=== PATIENT | male | born 1960 | race Caucasian/White ===

== ENCOUNTER 2016-08-09 18:46 | Inpatient (IN) | payer BC, OTHER ==
[~2016-08-09] VITALS: Ht 167.6 cm; Wt 83.3 kg
[~2016-08-09 18:46] MED LIST: ASPI325T4 PO; ATOR40TA21 PO; BENA1TAB13; CARV6.2545 PO; LAS20 PO; NAPR-260 PO; ONDA4TAB35 PO; PANT40TA3; POTA10TA
[2016-08-09] MEDS ORDERED: SOD CHLORIDE 0.9% 500 ML IV STA (23:08)
[2016-08-09 23:59] LABS: ALBUMIN 4.6 g/dl (3.3-4.9); POTASSIUM 3.7 mmol/L (3.5-5.1)
[2016-08-10] VITALS (11 sets, daily range): BP systolic 124–166; BP diastolic 48–58; PULSE 56–63; RESP 18–19; Ht 167.6 cm; Wt 83.3 kg
[2016-08-10] LABS: INR 0.97; PROTIME 12.9 Sec (12.2-14.2)
[2016-08-10 00:01] LABS: PARTIAL THROMBOPLASTIN TIME 47.7 Sec (25.0-35.0)
[2016-08-10 00:02] LABS: ALBUMIN/GLOBULIN RATIO 1.27; BILIRUBIN,INDIRECT 0.3 mg/dl (0-1.1); BILIRUBIN,TOTAL 0.3 mg/dl (0.2-1.3); CREATININE 1.09 mg/dl (0.61-1.24); TOTAL PROTEIN 8.2 g/dl (6.1-8.1)
[2016-08-10 00:03] LABS: CALCIUM 9.5 mg/dl (8.4-10.2)
[2016-08-10 00:13] LABS: BASOPHILS % 0.3 % (0.0-2.0); EOSINOPHILS # 0.1 10^3/ul (0.0-0.5); HEMATOCRIT 38.4 % (42.0-52.0); HEMOGLOBIN 13.1 g/dl (14.0-18.0); LYMPHOCYTES # 1.8 10^3/ul (0.8-2.9); LYMPHOCYTES % 39.6 % (15.0-51.0); MEAN CORPUSCULAR HGB CONC 34.2 g/dl (32.0-37.0); MEAN CORPUSCULAR VOLUME 90.6 fl (82.0-101.0); MEAN PLATELET VOLUME 8.1 fl (7.4-10.4); MONOCYTE # 0.4 10^3/ul (0.3-0.9); MONOCYTES % 8.7 % (0.0-11.0); NEUTROPHIL # 2.2 10^3/ul (1.6-7.5); NEUTROPHILS % 48.4 % (39.0-77.0); PLATELET COUNT 243 10^3/UL (140-440); RED BLOOD COUNT 4.24 10^6/ul (4.70-6.10); RED CELL DISTRIBUTION WIDTH 13.1 % (11.5-14.5); UNCORRECTED WBC 4.5 10^3/ul (4.8-10.8); WHITE BLOOD COUNT 4.5 10^3/ul (4.8-10.8)
[2016-08-10 00:14] LABS: CONDITION 1; TROPONIN-I 0.069 ng/ml (0.00-0.12)
--- NOTE | 2016-08-10 01:59 | ERA ---
ER Documentation Chief Complaint Date/Time DATE: 08/10/16 TIME: 01:56 Chief Complaint SOB WITH CHEST PRESSURE X 1 DAY HPI This is a 56-year-old who comes in with a shortness breath chest pressure 1 day. Chest pain is mild to moderate intensity pressure-like substernal nonexertional, non-positional with no exacerbating or alleviating factors. Patient also has noticed some mild leg swelling bilaterally over the past 2 days. No pain in her legs. No recent travel. No nausea no vomiting no fevers no chills ROS All systems reviewed and are negative except as per history of present illness. Medications Home Meds Active Scripts Ondansetron Hcl* (Zofran* ODT) 4 mg -ODT Tab.disper, 4 MG PO Q6 Y for NAUSEA AND /OR VOMITING, #10 TAB Prov:MYRNA GRAY MD 01/23/15 Naproxen* (Naprosyn*) 500 Mg Tablet, 500 MG PO BID Y for PAIN AND/OR INFLAMMATION, #20 TAB Prov:NONA CONTRERAS 01/23/15 Reported Medications Potassium Bicarbonate-Citric Acid (Effer-K) 10 Meq Tablet.eff, 10 DAILY 02/08/13 Benazepril-Hydrochlorothiazide (Benazepril-Hydrochlorothiazide) 1 Each Tablet, 20 MG DAILY, 0 Refills 02/08/13 Pantoprazole* (Protonix*) 40 Mg Tablet.dr, DAILY 02/08/13 Carvedilol (Coreg) 6.25 Mg Tablet, 12.5 MG PO BID, 0 Refills 04/13/12 Furosemide (Lasix) 20 Mg Tab, 40 MG PO DAILY, 0 Refills 04/13/12 Atorvastatin (Lipitor) 40 Mg Tablet, 40 MG PO PM 03/06/12 Aspirin* (Aspirin*) 325 Mg Tablet, 325 MG PO DAILY 03/06/12 Allergies Allergies: Coded Allergies: [place] (Verified Allergy, Intermediate, hives, 04/13/12) Uncoded Allergies: oak wood (Allergy, Intermediate, hives, 03/06/12) PMhx/Soc History of Surgery: No Anesthesia Reaction: No Hx Neurological Disorder: No Hx Respiratory Disorders: No Hx Cardiac Disorders: Yes (chf htn CAD, cardiac stent placement) Hx Psychiatric Problems: No Hx Miscellaneous Medical Probl: Yes (htn/MT/stents) Hx Alcohol Use: No Hx Substance Use: No Hx Tobacco Use: No Smoking Status: Never smoker Physical Exam Vitals Vital Signs Date Time Temp Pulse Resp B/P Pulse Ox O2 Delivery O2 Flow Rate FiO2 08/09/16 23:45 Nasal Cannula 2.0 08/09/16 23:45 Nasal Cannula 2 08/09/16 19:47 97.0 73 20 159/70 96 Physical Exam Const: [] Head: Atraumatic Eyes: Normal Conjunctiva ENT: Normal External Ears, Nose and Mouth. Neck: Full range of motion..~ No meningismus. Resp: Clear to auscultation bilaterally Cardio: Regular rate and rhythm, no murmurs Abd: Soft, non tender, non distended. Normal bowel sounds Skin: No petechiae or rashes Back: No midline or flank tenderness Ext: No cyanosis, or edema Neur: Awake and alert Psych: Normal Mood and Affect Result Diagram: 08/09/160 08/09/16 2330 Results 24 hrs Laboratory Tests Test 08/09/16 23:30 Activated Partial Thromboplast Time 47.7Sec Alanine Aminotransferase (ALT/SGPT) 25IU/L Albumin 4.6g/dl Albumin/Globulin Ratio 1.27 Alkaline Phosphatase 53IU/L Anion Gap 21 Aspartate Amino Transf (AST/SGOT) 26IU/L B-Type Natriuretic Peptide 618PG/ML Basophils # 0.010^3/ul Basophils % 0.3% Blood Urea Nitrogen 35mg/dl Calcium Level 9.5mg/dl Carbon Dioxide Level 27mmol/L Chloride Level 103mmol/L Creatinine 1.09mg/dl Direct Bilirubin 0.00mg/dl Eosinophils # 0.110^3/ul Eosinophils % 3.0% Globulin 3.60g/dl Glucose Level 138mg/dl Hematocrit 38.4% Hemoglobin 13.1g/dl INR International Normalized Ratio 0.97 Indirect Bilirubin 0.3mg/dl Lymphocytes # 1.810^3/ul Lymphocytes % 39.6% Mean Corpuscular Hemoglobin 31.0pg Mean Corpuscular Hemoglobin Concent 34.2g/dl Mean Corpuscular Volume 90.6fl Mean Platelet Volume 8.1fl Monocytes # 0.410^3/ul Monocytes % 8.7% Neutrophils # 2.210^3/ul Neutrophils % 48.4% Nucleated Red Blood Cells # 0.010^3/ul Nucleated Red Blood Cells % 0.0/100WBC Platelet Count 43183^3/UL Potassium Level 3.7mmol/L Prothrombin Time 12.9Sec Prothrombin Time Ratio 1.0 Red Blood Count 4.2410^6/ul Red Cell Distribution Width 13.1% Sodium Level 147mmol/L Total Bilirubin 0.3mg/dl Total Protein 8.2g/dl Troponin I 0.069ng/ml White Blood Count 4.510^3/ul Current Medications Medications (Trade) Dose Ordered Sig/Francisco Route PRN Reason Start Time Stop Time Status Last Admin Dose Admin Sodium Chloride (NS) 500 ml @ 500 mls/hr Q1H STAT IV 08/09/16 23:08 08/10/16 00:07 DC 08/09/16 23:36 Procedures/MDM Chest X-ray 1V Interpreted by me: Soft Tissue: No acute abnormalities Bones: No acute abnormalities Mediastinum/Cardiac Silhouette/Lungs: No acute abnormalities EKG: Rate/Rhythm: Normal Sinus Rhythm QRS, ST, T-waves: No changes consistent w/ acute ischemia Impression: No evidence of ischemia or arrhythmia Patient's symptoms are concerning for cardiac cause will require inpatient workup and continuous monitoring. Further w/u for ischemia, arrhythmia, PE or dissection will be deferred to the inpatient team. Accepting Care Team: Current data and ongoing care discussed. Time: 155 am Primary Provider: Dr. Morales who is on-call for Dr. Ravi Consulting: [XOXOXO] Outstanding Data: none Departure Diagnosis: Primary Impression: Shortness of breath Additional Impression: Chest pain Qualified Code: I20.9 - Ischemic chest pain Condition: Stable RUBI PRADHAN Aug 10, 2016 01:59
[2016-08-10] MEDS ORDERED: ONDANSETRON (ODT) 4 MG TAB ODT ONE (02:43)
--- NOTE | 2016-08-10 04:23 | RADRPT ---
PROCEDURE: XR Chest. CLINICAL INDICATION: Chest Pain. TECHNIQUE: Portable single view of the chest COMPARISON: 01/23/2015 FINDINGS: Global cardiomegaly is again seen as well as mild pulmonary vascular congestion. No definite inters titial or alveolar edema. No focal infiltrate or pleural effusion. No definite acute bony abnormal ity. IMPRESSION: Persistent cardiomegaly and mild pulmonary vascular congestion. RPTAT: HLBE Mariela Coombs Physician Date Time Electronically viewed and signed by Mariela Coombs, Physician on 08/10/2016 04:22 LE/
[2016-08-10] MEDS ORDERED: NITROGLYCERIN (SL) 0.4 MG TAB SL PRN (10:30)
[2016-08-10] MEDS ORDERED: ACETAMINOPHEN 650 MG SUPP PR PRN (10:30)
[2016-08-10] MEDS ORDERED: morphine 2 MG INJ IV PRN (10:30)
[2016-08-10] MEDS ORDERED: ONDANSETRON 4 MG INJ IV PRN (10:30)
[2016-08-10] MEDS ORDERED: NACL 0.9% 3 ML SYG IV SCH (10:30)
[2016-08-10] MEDS ORDERED: ALBUTEROL/IPRATROPIUM (NEB) 3 ML AMP HHN PRN (11:30)
[2016-08-10 12:04] LABS: CK-MB 1.14 ng/ml (0.0-2.4)
--- NOTE | 2016-08-10 12:05 | HP ---
DATE OF ADMISSION: 08/10/2016 CHIEF COMPLAINT: Shortness of breath and chest pressure for 1 more day. HISTORY OF PRESENT ILLNESS: The patient is a 56-year-old gentleman with past medical history posit alex for coronary artery disease status post stent placement to RCA in February [address] Alisa mcelroy, history of hypertension, hyperlipidemia, congestive heart failure, history of chronic obstr uctive pulmonary disease and emphysema. Patient stated that he has been compliant with his medications. The patient developed shortness of breath and pressure-like sensation in the chest. The patient also stated that he was not able to li ft and walk one flight of stairs. Chest pressure is moderate in intensity, substernal, nonexertiona l. The patient also complains of bilateral lower extremity swelling over the last 2 days. The buffy ent denies any fever, denies any nausea, vomiting, diarrhea, constipation. Patient also stated that he had a stress test recently done in January of [address] Tompkins's office, he does not know the re sults of the test. Patient underwent a chest x-ray in the emergency room which revealed persistent cardiomegaly and mild pulmonary vascular congestion. The patient also has a history of pulmonary h ypertension. The patient's troponin was negative x1. BNP was 618. The patient was given oxygen an d was admitted for further evaluation and management to telemetry floor. REVIEW OF SYSTEMS: Per HPI. The patient also stated that he has chronic back pain and GERD. PAST SURGICAL HISTORY: Per HPI. SOCIAL HISTORY: The patient lives at home. The patient quit smoking in 2010. Denies any alcohol u se, denies any illicit drug use. FAMILY HISTORY: Patient's mother of diabetic complications in his 60s. Father of heart p roblems at 72. ALLERGIES: The patient is ALLERGIC TO OLIVES AND OAK WOOD. HOME MEDICATIONS: Include: 1. Aspirin. 2. Naproxen. 3. Zofran. 4. Protonix. 5. Lipitor. 6. Benazepril/hydrochlorothiazide. 7. Coreg. 8. Lasix. LABORATORY SYSTEMS: A 12-point review of systems is negative unless what mentioned in the HPI. PHYSICAL ASSESSMENT GENERAL: well-developed, well-nourished male, currently is awake, alert. VITAL SIGNS: Temperature is 97.6, pulse is 64, blood pressure is 134/48, respiratory rate 18, oxyge n saturation 97% on 2 liters nasal cannula. HEENT: Head is atraumatic, normocephalic. Pupils equal, round, reactive to light and accommodation . Oral mucosa is pink and moist. NECK: Supple, no cervical lymphadenopathy, no thyromegaly. CHEST: Lungs clear bilaterally, slightly diminished at the bases. There are no rhonchi, wheezes or rales noted. CARDIOVASCULAR: Normal S1, S2. The patient has diastolic murmur III/. ABDOMEN: Round, soft, nondistended, nontender. There is no guarding, no rebound tenderness. EXTREMITIES: Mild edema 1+. There is no clubbing, cyanosis. Pulses equal bilaterally 2+. SKIN: There is no rash, petechiae noted. NEUROLOGICAL: The patient is awake, alert and oriented x4. No focal deficits noted. MUSCULOSKELETAL: Motor strength 5/5 in all extremities. LABORATORY DATA: On admission, CBC: White blood cells 4.5, hemoglobin 13.1, hematocrit 38.4, plate lets 243. Chemistry: Sodium is 147, potassium 3.7, chloride 103, carbon dioxide 27, anion gap 21, BUN is 35, creatinine 1.09. AST is 26, ALT 25, alkaline phosphatase 53. ASSESSMENT AND PLAN: 1. Chest pain, rule out acute coronary syndrome. We will obtain cardiac enzymes q. 8 hours x3, o btain a 2D echo and 12-lead EKG. Start patient on aspirin and nitroglycerin for pain. Dr. Martinez will be following the patient from cardiology standpoint. 2. Systolic and diastolic dysfunction congestive heart failure. Continue patient's home Lasix. Mo nitor electrolytes. 3. Hypertension. Continue patient on Coreg, lisinopril and hydrochlorothiazide. 4. Coronary artery disease with history of stent placement to RCA in 2011. Continue aspirin. 5. Chronic obstructive pulmonary disease. We will start patient on Xopenex p.r.n. for shortness of breath and routine q. 4h. Start Advair. 6. Hyperlipidemia. Continue statins. 7. We will continue Lovenox for deep venous thrombosis prophylaxis and Protonix for peptic ulcer di sease prophylaxis. Further recommendations based on clinical course. Plan of care discussed with Tana Mota. Dictated By: DARION PRASAD BATTERY CONTAINER FINISHING HAND for AMAN MOTA MD SR/NTS Conf#: [id number] DID#: [id number]
[2016-08-10 12:06] LABS: TROPONIN-I 0.043 ng/ml (0.00-0.12)
[2016-08-10] MEDS: ENOXAPARIN 30 MG/0.3 ML SYG SC SCH (12:32)
[2016-08-10] MEDS: ALBUTEROL/IPRATROPIUM (NEB) 3 ML AMP HHN SCH ×2 (13:48→20:13)
[2016-08-10] MEDS: SALMETEROL/FLUTICASONE 250/50 INHA INH SCH ×2 (13:51→22:21)
--- NOTE | 2016-08-10 16:05 | RADRPT ---
Echocardiogram Report Patient Name: AUDREY VILLAFUERTE Gender: Male Date: 1960 Study Date: 10-Aug-2016 Early Breastfeeding Care Specialist: Bela Davis RDCS Location: [facility] Ref. Physician: DARION PRASAD Quality: Good Procedures: Transthoracic echocardiogram with complete 2D, M-Mode, and doppler examination. Indications: Congestive Heart Failure. 2D/M Mode Doppler Measurement Value Normal Ranges Measurement Value Normal Ranges LVIDd 2D 7.4 3.5 - 5.6 cm SOM Vmax 3.3 cm2 LVIDs 2D 5.8 2.1 - 4.1 cm SOM VTI 3.7 cm2 FS 2D 21.1 % AV Mean Yuri 1.4 m/sec LVPWd 2D 1.3 0.6 - 1.1 cm AV Mean PG 9.0 mmHg IVSd 2D 1.4 0.6 - 1.1 cm AV Peak Yuri 2.2 m/sec IVS/LVPW 2D 1.0 AV Peak PG 20.0 mmHg AoR Diam 2D 3.7 2.0 - 3.7 cm AV VTI 49.3 cm LA/Ao 2D 1 0 - 1 AI Peak PG 40.0 mmHg EDV 2D 407.0 cm3 AI Peak Yuri 3.2 m/sec ESV 2D 200.0 cm3 AI PHT 372.0 msec LA Dimen 2D 5.4 2.3 - 4.0 cm LVOT Mean Yuri 0.8 m/sec LVOT Diam 2.8 cm LVOT Mean PG 3.0 mmHg LVOT Area 6.2 cm2 LVOT Peak Yuri 1.2 m/sec LVOT Peak PG 6.0 mmHg LVOT VTI 29.9 cm MV E Peak Yuri 0.7 m/sec MV A Peak Yuri 0.8 m/sec MV E/A 0.9 MV Decel Time 222 msec MV E/A 0.9 TR Peak Yuri 2.8 m/sec TR Peak PG 32.0 mmHg RVSP 47.0 mmHg Findings Left Ventricle: Moderate concentric left ventricular hypertrophy. Severe enlargement of left ventricle cavity. Moderate global left ventricular systolic dysfunction. Ejection fraction is visually estimated at 40 %. Tissue Doppler/Mitral Doppler indices are consistent with impaired relaxation (Stage I diastolic dysfunction). Right Ventricle: Normal right ventricular size. Normal right ventricular systolic function. Left Atrium: There is severe enlargement of left atrium. Right Atrium: The right atrium is normal in size. Mitral Valve: Normal appearance of the mitral valve. Mild mitral annular calcification. Trace mitral regurgitation. Aortic Valve: Aortic valve Max velocity 2.21 m/sec. Max PG 20.00 mmHg. Mean PG 9.00 mmHg. Aortic sclerosis without stenosis. Aortic cusps appear mildly calcified. Moderate aortic valve regurgitation. The regurgitation jet is eccentrically directed. Tricuspid Valve: Estimated peak PA systolic pressure 47 mmHg. There is mild tricuspid regurgitation. Pulmonic Valve: Normal pulmonic valve appearance. There is mild pulmonic regurgitation. Pericardium: Normal pericardium with no significant pericardial effusion. Aorta: Normal aortic root. IVC: Dilated IVC without respiratory collapse consistent with elevated right atrial pressure. Conclusions 1.Moderate concentric left ventricular hypertrophy. Severe enlargement of left ventricle cavity. Mild to Moderate global left ventricular systolic dysfunction. Ejection fraction is visually estimated at 40 %. Tissue Doppler/Mitral Doppler indices are consistent with impaired relaxation (Stage I diastolic dysfunction). 2.There is severe enlargement of left atrium. 3.Normal appearance of the mitral valve. Mild mitral annular calcification. Trace mitral regurgitation. 4.Moderate aortic valve regurgitation. 5.Estimated peak PA systolic pressure 47 mmHg. There is mild tricuspid regurgitation. 6.There is mild pulmonic regurgitation. Electronically Signed By: Aaron Martinez 10-Aug-2016 16:04:0800 Patient Name: AUDREY VILLAFUERTE Study Date: 10-Aug-2016 [id number]
--- NOTE | 2016-08-10 16:53 | CONS ---
DATE OF ADMISSION: 08/10/2016 DATE OF CONSULTATION: 08/10/2016 TYPE OF CONSULTATION: Cardiology. REASON FOR CONSULTATION: Shortness of breath, assess for congestive heart failure as well as chest pain, assess for acute coronary syndrome. REQUESTING PHYSICIAN: Aman Blank MD HISTORY OF PRESENT ILLNESS: Mr. Garay is a 56-year-old male with history of percutaneous trans luminal coronary angioplasty and stent placement February 2012, hypertension, chronic obstructive p ulmonary disease, dyslipidemia, congestive heart failure who presented with worsening shortness maria a th and associated chest pressure x1 day, worse with exertional activities. Upon arrival in the emergency department, temperature 97, blood pressure 159/70, pulse 70, respirato ry 20, saturating 96%. Patient's labs white blood cell count of 4.5, hemoglobin 13.1, platelet coun t of 243. Sodium 147, potassium 3.7, creatinine 1.0, BUN of 35. Troponin negative. BNP of 618, T 26, ALT 25. INR 0.97. White blood cell count 4.5, hemoglobin 13.1, platelet count of 243. The patient underwent a chest x-ray revealing persistent cardiomegaly and mild pulmonary vascular co ngestion. The patient's electrocardiogram revealed normal sinus rhythm rate of 68, normal axis, vol tage criteria for left ventricular hypertrophy and nonspecific ST-T abnormalities. The patient was subsequently admitted to the floor and since admit to the floor, continues to have shortness of maria a th and intermittent chest pain. PAST MEDICAL HISTORY: As above in HPI. MEDICATIONS CURRENTLY IN HOSPITAL: 1. Aspirin 81 mg daily. 2. Lasix 40 mg daily. 3. benazepril 20 mg daily. 4. Hydrochlorothiazide 12.5 mg daily. 5. Protonix 40 mg daily. 6. Lipitor 40 mg at bedtime. 7. Carvedilol 12.5 mg p.o. b.i.d. 8. DuoNebs. 9. Advair Diskus, 10. ____ p. r.n. 11. Morphine p.r.n. 12. ____ p.r.n. ALLERGIES: NO KNOWN DRUG ALLERGIES. SOCIAL HISTORY: No tobacco, ETOH or illicit drug use. FAMILY HISTORY: No history of sudden cardiac or early CAD. REVIEW OF SYSTEMS: As above in HPI. CONSTITUTIONAL: No fevers, chills. PULMONARY: Shortness of breath. CARDIOVASCULAR: Obstructive pulmonary disease. GASTROINTESTINAL: No vomiting. GENITOURINARY: No hematuria. MUSCULOSKELETAL: Degenerative joint disease. PSYCHIATRIC: The patient denies depression. NEUROLOGIC: No documented history of CVA. PHYSICAL EXAMINATION VITAL SIGNS: Temperature 97.6, blood pressure 132/58, pulse 61, respirations 18, saturating 95%. GENERAL: The patient is alert, awake, in no acute distress. NECK: JVP approximately 9 cm water. CHEST: Fair air movement throughout. HEART: Regular rate and rhythm. Normal S1, S2, I/ systolic murmur, nondisplaced PMI. ABDOMEN: Positive bowel sounds, soft. EXTREMITIES: No pitting edema, 1+ pulses bilaterally, posterior tibial. LABORATORIES: As above in HPI with since admit patient had a second troponin return negative, 2 neg ative troponins. IMAGING STUDIES: As above in HPI. No further imaging studies for my review at this time. ECG: As above in HPI. No further electrocardiograms for my review at this time. IMPRESSION: 1. Chest pain, assess for acute coronary syndrome. 2. Shortness of breath, assess for congestive heart failure. 3. Abnormal electrocardiogram, assess for acute coronary syndrome. 4. Hypertension, under reasonable control. 5. History of dyslipidemia. 6. History of percutaneous transluminal coronary angioplasty and stent placement in 2011 to the [facility] coronary artery. 7. History of stress test January 2016 in my [facility] office, unknown results at this time. 8. Chronic obstructive pulmonary disease. 9. Hypernatremia. 10. Mild anemia. RECOMMENDATIONS: 1. At this time, would maintain patient on telemetry monitoring to follow rhythm and rate control c losely. 2. I am going to complete the patient's rule out for myocardial infarction to ensure that the patie nt's chest pain was not due to an acute coronary syndrome such as acute myocardial infarction. 3. Check a 2D echocardiogram to further assess the patient's ejection fraction, wall motion or any major abnormalities and I will additionally follow the patient's stress test in the office February 12 and assess for any possible ischemia and need for catheterization during this ____ hospitalizati on. 4. Continue the patient's current carvedilol, benazepril and hydrochlorothiazide for control of blo od pressure. 5. Continue the patient's current Lipitor and adjust according to a fasting lipid panel ____ that she checked. 6. Continue the patient's daily Lasix at this time, following strict I's and O's to grade diuresis closely, with possible need to increase dose and additionally will continue the patient's bronchodil ators and follow respiratory status closely. Thank you for allowing me to take part in the care of this patient. I will continue to follow very closely with you with further recommendations to be made as patient progresses through her inpatient hospital clinical course. Dictated By: MYRNA GILBERT/CECY Conf#: [id number] DID#: [id number] CC: AMAN BLANK MD;*EndCC*
[2016-08-10] MEDS: ATORVASTATIN 40 MG TAB PO SCH (20:58)
[2016-08-10] MEDS: FUROSEMIDE 40 MG TAB PO SCH (20:59)
[2016-08-10 21:05] LABS: CK-MB 0.94 ng/ml (0.0-2.4)
[2016-08-10 21:07] LABS: TROPONIN-I 0.063 ng/ml (0.00-0.12)
[2016-08-11] VITALS (13 sets, daily range): BP systolic 120–147; BP diastolic 25–74; PULSE 52–68; RESP 18–20
[2016-08-11] MEDS: ALBUTEROL/IPRATROPIUM (NEB) 3 ML AMP HHN SCH ×4 (02:31→20:56)
[2016-08-11] MEDS: PANTOPRAZOLE (EC) 40 MG TAB PO SCH (05:34)
[2016-08-11 07:35] LABS: BASOPHILS % 0.4 % (0.0-2.0); EOSINOPHILS # 0.2 10^3/ul (0.0-0.5); EOSINOPHILS % 3.7 % (0.0-7.0); HEMATOCRIT 37.9 % (42.0-52.0); HEMOGLOBIN 12.9 g/dl (14.0-18.0); LYMPHOCYTES # 1.3 10^3/ul (0.8-2.9); LYMPHOCYTES % 28.9 % (15.0-51.0); MEAN CORPUSCULAR HEMOGLOBIN 31.2 pg (29.0-33.0); MEAN CORPUSCULAR HGB CONC 34.2 g/dl (32.0-37.0); MEAN CORPUSCULAR VOLUME 91.2 fl (82.0-101.0); MEAN PLATELET VOLUME 7.9 fl (7.4-10.4); MONOCYTE # 0.3 10^3/ul (0.3-0.9); MONOCYTES % 7.8 % (0.0-11.0); NEUTROPHIL # 2.6 10^3/ul (1.6-7.5); NEUTROPHILS % 59.2 % (39.0-77.0); PLATELET COUNT 211 10^3/UL (140-440); RED BLOOD COUNT 4.15 10^6/ul (4.70-6.10); RED CELL DISTRIBUTION WIDTH 13.3 % (11.5-14.5); UNCORRECTED WBC 4.4 10^3/ul (4.8-10.8); WHITE BLOOD COUNT 4.4 10^3/ul (4.8-10.8)
[2016-08-11 07:39] LABS: CONDITION 1
[2016-08-11 07:44] LABS: ALBUMIN 4.2 g/dl (3.3-4.9)
[2016-08-11 07:45] LABS: POTASSIUM 3.9 mmol/L (3.5-5.1)
[2016-08-11 07:47] LABS: ALBUMIN/GLOBULIN RATIO 1.31; BILIRUBIN,INDIRECT 0.4 mg/dl (0-1.1); BILIRUBIN,TOTAL 0.4 mg/dl (0.2-1.3); CREATININE 0.93 mg/dl (0.61-1.24); TOTAL PROTEIN 7.4 g/dl (6.1-8.1)
[2016-08-11 07:48] LABS: CALCIUM 8.9 mg/dl (8.4-10.2); MAGNESIUM 1.9 mg/dl (1.7-2.5)
[2016-08-11 08:22] LABS: THYROID STIMULATING HORMONE 1.24 MIU/L (0.465-4.680)
--- NOTE | 2016-08-11 08:41 | RADRPT ---
PROCEDURE: Chest 1 views. CLINICAL INDICATION: Shortness of breath, pneumonia, congestive heart failure. TECHNIQUE: AP views of the chest were obtained. COMPARISON: August 09, 2016 FINDINGS: The heart is large. Mild elevation right hemidiaphragm is identified. The lungs are hyperexpanded. Central pulmonary vascular congestion and interstitial prominence in both lungs is unchanged. Scat tered atelectasis is noted in both lungs. No consolidations are identified. No pneumothorax is seen . The osseous structures are unchanged. IMPRESSION: Cardiomegaly . Hyperexpanded lungs with stable mild elevation of the right hemidiaphragm. Stable mild central pulmonary vascular congestion and interstitial prominence in both lungs. Scattered subsegmental atelectasis in both lungs. RPTAT: AA .Andrea Greenfield MD, MD Date Time Electronically viewed and signed by .Andrea Greenfield MD, MD on 08/11/2016 08:41 .P/
[2016-08-11] MEDS ORDERED: FUROSEMIDE 20 MG TAB PO SCH (09:00)
[2016-08-11] MEDS: ASPIRIN 81 MG TAB PO SCH (09:03)
[2016-08-11] MEDS: HYDROCHLOROTHIAZIDE 12.5 MG CAP PO SCH (09:05)
[2016-08-11] MEDS: BENAZEPRIL 20 MG TAB PO SCH (09:05)
[2016-08-11] MEDS: FUROSEMIDE 40 MG TAB PO SCH (09:06)
[2016-08-11] MEDS: ENOXAPARIN 30 MG/0.3 ML SYG SC SCH (09:08)
[2016-08-11] MEDS: SALMETEROL/FLUTICASONE 250/50 INHA INH SCH ×2 (09:09→20:38)
--- NOTE | 2016-08-11 11:40 | PN ---
Date/Time of Note Date/Time of Note DATE: 08/11/16 TIME: 11:37 Assessment/Plan Lines/Catheters IV [facility] Urinary Cath still in place: No Assessment/Plan Assessment/Plan 1. Chest pain, rule out acute coronary syndrome. - cardiac enzymes q. 8 hours x3 = negative. - aspirin and nitroglycerin for pain. - per Dr. Martinez from cardiology standpoint. 2. Systolic and diastolic dysfunction congestive heart failure. Continue patient's home Lasix. Monitor electrolytes. 3. Hypertension. Continue patient on Coreg, lisinopril and hydrochlorothiazide. 4. Coronary artery disease with history of stent placement to RCA in 2011. Continue aspirin. 5. Chronic obstructive pulmonary disease. - Xopenex p.r.n. for shortness of breath and routine q. 4h. Start Advair. 6. Hyperlipidemia. Continue statins. 7. Lovenox for deep venous thrombosis prophylaxis 8. Protonix for peptic ulcer disease prophylaxis. Further recommendations based on clinical course. Plan of care discussed with Dr. Blank. Exam/Review of Systems Vital Signs Vitals Vital Signs Date Time Temp Pulse Resp B/P Pulse Ox O2 Delivery O2 Flow Rate FiO2 08/11/16 08:46 98.0 67 18 129/25 98 08/11/16 08:21 Nasal Cannula 2.0 08/10/16 13:48 21 Intake and Output 08/10/16 08/10/16 08/11/16 15:00 23:00 07:00 Intake Total 650 ml 600 ml Output Total 1000 ml Balance 650 ml -400 ml Results Result Diagram: 08/11/16 0708/11/16 07 Results 24 hrs Laboratory Tests Test 08/10/16 19:53 08/11/16 07:05 Creatine Kinase 151 Creatine Kinase Index 0.6 Creatinine Kinase MB (Mass) 0.94 Troponin I 0.063 Alanine Aminotransferase (ALT/SGPT) 23 Albumin 4.2 Albumin/Globulin Ratio 1.31 Alkaline Phosphatase 51 Anion Gap 17 H Aspartate Amino Transf (AST/SGOT) 25 Basophils # 0.0 Basophils % 0.4 Blood Urea Nitrogen 27 H Calcium Level 8.9 Carbon Dioxide Level 28 Chloride Level 104 Creatinine 0.93 Direct Bilirubin 0.00 Eosinophils # 0.2 Eosinophils % 3.7 Globulin 3.20 Glucose Level 108 Hematocrit 37.9 L Hemoglobin 12.9 L Indirect Bilirubin 0.4 Lymphocytes # 1.3 Lymphocytes % 28.9 Magnesium Level 1.9 Mean Corpuscular Hemoglobin 31.2 Mean Corpuscular Hemoglobin Concent 34.2 Mean Corpuscular Volume 91.2 Mean Platelet Volume 7.9 Monocytes # 0.3 Monocytes % 7.8 Neutrophils # 2.6 Neutrophils % 59.2 Nucleated Red Blood Cells # 0.0 Nucleated Red Blood Cells % 0.0 Platelet Count 211 Potassium Level 3.9 Red Blood Count 4.15 L Red Cell Distribution Width 13.3 Sodium Level 145 H Thyroid Stimulating Hormone (TSH) 1.240 Total Bilirubin 0.4 Total Protein 7.4 White Blood Count 4.4 L Medications Medications Current Medications Ondansetron HCl (Zofran Inj) 4 mg Q6H PRN IV NAUSEA AND/OR VOMITING; Start at 10:30 Aspirin (Aspirin) 81 mg DAILY PO Last administered on 08/11/16 09:03; Admin Dose 81 MG; Start 08/11/16 at 09:00 Nitroglycerin (Nitroglycerin (Sl Tab) 0.4 Mg) 1 tab Q5M PRN SL CHEST PAIN; Start 08/10/16 at 10:30 Acetaminophen (Tylenol Supp) 650 mg Q6H PRN VT PAIN LEVEL 1-3 OR FEVER; Start 08/10/16 at 10:30 Morphine Sulfate (morphine) 2 mg Q4H PRN IV PAIN LEVEL 7-10; Start 08/10/16 at 10:30 Pantoprazole (Protonix Tab) 40 mg DAILY@06 PO Last administered on 08/11/16 05 :34; Admin Dose 40 MG; Start 08/11/16 at 06:00 Enoxaparin Sodium (Lovenox) 30 mg DAILY SC Last administered on 08/11/16 09:08 ; Admin Dose 30 MG; Start 08/10/16 at 10:30 Atorvastatin Calcium (Lipitor) 40 mg QHS PO Last administered on 08/10/16 20: 58; Admin Dose 40 MG; Start 08/10/16 at 21:00 Carvedilol (Coreg) 12.5 mg BID PO Last administered on 08/11/16 09:06; Admin Dose 12.5 MG; Start 08/10/16 at 21:00 Benazepril HCl (Lotensin) 20 mg DAILY PO Last administered on 08/11/16 09:05; Admin Dose 20 MG; Start 08/11/16 at 09:00 Hydrochlorothiazide (Hydrochlorothiazide) 12.5 mg DAILY PO Last administered on 08/11/16 09:05; Admin Dose 12.5 MG; Start 08/11/16 at 09:00 Salmeterol Xinafoate/ Fluticasone (Advair 250/50 Diskus) 1 inh BID INH Last administered on 08/11/16 09:09; Admin Dose 1 INH; Start 08/10/16 at 13:00 Furosemide (Lasix) 40 mg BID PO Last administered on 08/11/16 09:06; Admin Dose 40 MG; Start 08/10/16 at 21:00 ANN MARIE CRUZ Aug 11, 2016 11:40
--- NOTE | 2016-08-11 13:04 | CONS ---
Date/Time of Note Date/Time of Note DATE: 08/11/16 TIME: 12:58 Assessment/Plan Assessment/Plan Chief Complaint/Hosp Course IMPRESSION: 1. Chest pain, assess for acute coronary syndrome.-negative troponin x3/EF 40% by echo this admit 2. Shortness of breath, assess for congestive heart failure. 3. Abnormal electrocardiogram, assess for acute coronary syndrome. 4. Hypertension, under reasonable control. 5. History of dyslipidemia. 6. History of percutaneous transluminal coronary angioplasty and stent placement in 2011 to the right coronary artery. 7. History of stress test January 2016 in my partners office, unknown results at this time. 8. Chronic obstructive pulmonary disease. 9. Hypernatremia. 10. Mild anemia. Recc: -Tele -will f/u outpatient stress test -Continue coreg/benazepril/HCTZ -Continue lasix but change to IV and add metolazone to make more negative -Free water for increased NA Problems: Consultation Date/Type/Reason Admit Date/Time Aug 10, 2016 at 01:56 Initial Consult Date 08/10/2016 Type of Consultation: Cardiology Reason for Consultation CHF Referring Provider: AMAN MOTA MD Exam/Review of Systems Vital Signs Vitals Vital Signs Date Time Temp Pulse Resp B/P Pulse Ox O2 Delivery O2 Flow Rate FiO2 08/11/16 12:39 60 08/11/16 11:57 98.0 18 141/66 98 08/11/16 08:21 Nasal Cannula 2.0 08/10/16 13:48 21 Intake and Output 08/10/16 08/10/16 08/11/16 15:00 23:00 07:00 Intake Total 650 ml 600 ml Output Total 1000 ml Balance 650 ml -400 ml Exam Review of Systems: CONSTITUTIONAL: No fevers, chills. PULMONARY: mild sob CARDIOVASCULAR: No chest pain/palpitations GASTROINTESTINAL: No nausea/vomiting. GENITOURINARY: No hematuria/dysuria. MUSCULOSKELETAL: No myagias/arthalgias. PSYCHIATRIC: The patient denies depression. NEUROLOGIC: No weakness Constitutional: alert, oriented Psych: no complaints Head: normocephalic ENMT: mucosa pink and moist Neck: jvd (9cm water), supple Respiratory: diminished breath sounds Cardiovascular: regular rate and rhythm Gastrointestinal: non-tender, soft Musculoskeletal: muscle tone (normal) Extremities: edema (none) Neurological: other (No focal deficits) Results Result Diagram: 08/11/1670408/11/16704 Results 24 hrs Laboratory Tests Test 08/10/16 19:53 08/11/16 07:05 Creatine Kinase 151 Creatine Kinase Index 0.6 Creatinine Kinase MB (Mass) 0.94 Troponin I 0.063 Alanine Aminotransferase (ALT/SGPT) 23 Albumin 4.2 Albumin/Globulin Ratio 1.31 Alkaline Phosphatase 51 Anion Gap 17 H Aspartate Amino Transf (AST/SGOT) 25 Basophils # 0.0 Basophils % 0.4 Blood Urea Nitrogen 27 H Calcium Level 8.9 Carbon Dioxide Level 28 Chloride Level 104 Creatinine 0.93 Direct Bilirubin 0.00 Eosinophils # 0.2 Eosinophils % 3.7 Globulin 3.20 Glucose Level 108 Hematocrit 37.9 L Hemoglobin 12.9 L Indirect Bilirubin 0.4 Lymphocytes # 1.3 Lymphocytes % 28.9 Magnesium Level 1.9 Mean Corpuscular Hemoglobin 31.2 Mean Corpuscular Hemoglobin Concent 34.2 Mean Corpuscular Volume 91.2 Mean Platelet Volume 7.9 Monocytes # 0.3 Monocytes % 7.8 Neutrophils # 2.6 Neutrophils % 59.2 Nucleated Red Blood Cells # 0.0 Nucleated Red Blood Cells % 0.0 Platelet Count 211 Potassium Level 3.9 Red Blood Count 4.15 L Red Cell Distribution Width 13.3 Sodium Level 145 H Thyroid Stimulating Hormone (TSH) 1.240 Total Bilirubin 0.4 Total Protein 7.4 White Blood Count 4.4 L Medications Medications Current Medications Ondansetron HCl (Zofran Inj) 4 mg Q6H PRN IV NAUSEA AND/OR VOMITING; Start at 10:30 Aspirin (Aspirin) 81 mg DAILY PO Last administered on 08/11/16t 09:03; Admin Dose 81 MG; Start 08/11/16 at 09:00 Nitroglycerin (Nitroglycerin (Sl Tab) 0.4 Mg) 1 tab Q5M PRN SL CHEST PAIN; Start 08/10/16 at 10:30 Acetaminophen (Tylenol Supp) 650 mg Q6H PRN IN PAIN LEVEL 1-3 OR FEVER; Start 08/10/16 at 10:30 Morphine Sulfate (morphine) 2 mg Q4H PRN IV PAIN LEVEL 7-10; Start 08/10/16 at 10:30 Pantoprazole (Protonix Tab) 40 mg DAILY@06 PO Last administered on 08/11/16 05 :34; Admin Dose 40 MG; Start 08/11/16 at 06:00 Enoxaparin Sodium (Lovenox) 30 mg DAILY SC Last administered on 08/11/16 09:08 ; Admin Dose 30 MG; Start 08/10/16 at 10:30 Atorvastatin Calcium (Lipitor) 40 mg QHS PO Last administered on 08/10/16 20: 58; Admin Dose 40 MG; Start 08/10/16 at 21:00 Carvedilol (Coreg) 12.5 mg BID PO Last administered on 08/11/16 09:06; Admin Dose 12.5 MG; Start 08/10/16 at 21:00 Benazepril HCl (Lotensin) 20 mg DAILY PO Last administered on 08/11/16 09:05; Admin Dose 20 MG; Start 08/11/16 at 09:00 Hydrochlorothiazide (Hydrochlorothiazide) 12.5 mg DAILY PO Last administered on 08/11/16 09:05; Admin Dose 12.5 MG; Start 08/11/16 at 09:00 Salmeterol Xinafoate/ Fluticasone (Advair 250/50 Diskus) 1 inh BID INH Last administered on 08/11/16 09:09; Admin Dose 1 INH; Start 08/10/16 at 13:00 Furosemide (Lasix) 40 mg BID PO Last administered on 08/11/16 09:06; Admin Dose 40 MG; Start 08/10/16 at 21:00 MYRNA OWEN Aug 11, 2016 13:04
[2016-08-11 14:51] LABS: CREATININE 1.09 mg/dl (0.61-1.24)
[2016-08-11] MEDS: FUROSEMIDE 40 MG INJ IV SCH (17:49)
[2016-08-11] MEDS: METOLAZONE 5 MG TAB PO SCH (20:41)
[2016-08-11] MEDS: ATORVASTATIN 40 MG TAB PO SCH (20:41)
--- NOTE | 2016-08-11 20:50 | RADRPT ---
Vent Rate: 56 bpm RR Interval: 0 msec [place] Interval: 166 msec QRS Duration: 128 msec QT Interval: 472 msec QTC Interval: 455 msec P-R-T [place]: 35 - 67 - 51 degrees Sinus bradycardia Left ventricular hypertrophy with QRS widening Abnormal ECG Electronically Signed By: Caio Romero [id number]
[2016-08-11] MEDS ORDERED: HYDROCODONE/APAP (5/325) TAB PO PRN (22:30)
[2016-08-11] MEDS ORDERED: ACETAMINOPHEN 325 MG TAB PO PRN (22:30)
[2016-08-12] VITALS (13 sets, daily range): BP systolic 135–157; BP diastolic 50–66; PULSE 58–71; RESP 18–20
[2016-08-12] MEDS: ALBUTEROL/IPRATROPIUM (NEB) 3 ML AMP HHN SCH ×4 (00:26→20:05)
[2016-08-12] MEDS: PANTOPRAZOLE (EC) 40 MG TAB PO SCH (06:26)
[2016-08-12] MEDS: FUROSEMIDE 40 MG INJ IV SCH ×2 (06:27→18:11)
[2016-08-12 07:59] LABS: BASOPHILS % 0.3 % (0.0-2.0); EOSINOPHILS # 0.2 10^3/ul (0.0-0.5); EOSINOPHILS % 4.4 % (0.0-7.0); HEMATOCRIT 40.3 % (42.0-52.0); HEMOGLOBIN 13.7 g/dl (14.0-18.0); LYMPHOCYTES # 1.4 10^3/ul (0.8-2.9); LYMPHOCYTES % 32.3 % (15.0-51.0); MEAN CORPUSCULAR HGB CONC 33.9 g/dl (32.0-37.0); MEAN CORPUSCULAR VOLUME 91.3 fl (82.0-101.0); MEAN PLATELET VOLUME 8.2 fl (7.4-10.4); MONOCYTE # 0.4 10^3/ul (0.3-0.9); MONOCYTES % 9.8 % (0.0-11.0); NEUTROPHIL # 2.3 10^3/ul (1.6-7.5); NEUTROPHILS % 53.2 % (39.0-77.0); PLATELET COUNT 226 10^3/UL (140-440); RED BLOOD COUNT 4.41 10^6/ul (4.70-6.10); RED CELL DISTRIBUTION WIDTH 12.9 % (11.5-14.5); UNCORRECTED WBC 4.3 10^3/ul (4.8-10.8); WHITE BLOOD COUNT 4.3 10^3/ul (4.8-10.8)
[2016-08-12 08:15] LABS: POTASSIUM 3.8 mmol/L (3.5-5.1)
[2016-08-12 08:18] LABS: CONDITION 1; CREATININE 1.13 mg/dl (0.61-1.24)
[2016-08-12 08:19] LABS: CALCIUM 9.4 mg/dl (8.4-10.2)
[2016-08-12] MEDS: ASPIRIN 81 MG TAB PO SCH (09:04)
[2016-08-12] MEDS: METOLAZONE 5 MG TAB PO SCH (09:04)
[2016-08-12] MEDS: BENAZEPRIL 20 MG TAB PO SCH (09:05)
[2016-08-12] MEDS: HYDROCHLOROTHIAZIDE 12.5 MG CAP PO SCH (09:05)
[2016-08-12] MEDS: ENOXAPARIN 30 MG/0.3 ML SYG SC SCH (09:16)
[2016-08-12] MEDS: SALMETEROL/FLUTICASONE 250/50 INHA INH SCH ×2 (09:16→22:26)
--- NOTE | 2016-08-12 13:58 | CONS ---
Date/Time of Note Date/Time of Note DATE: 08/12/16 TIME: 13:50 Assessment/Plan Assessment/Plan Chief Complaint/Hosp Course IMPRESSION: 1. Chest pain, assess for acute coronary syndrome.-negative troponin x3/EF 40% by echo this admit . Lexiscan 02/08 in my office with no ischemia/positive prior [place] EF 45% 2. Shortness of breath, assess for congestive heart failure. 3. Abnormal electrocardiogram, assess for acute coronary syndrome. 4. Hypertension, under reasonable control. 5. History of dyslipidemia. 6. History of percutaneous transluminal coronary angioplasty and stent placement in 2011 to the right coronary artery. 7. History of stress test January 2016 in my partners office, unknown results at this time. 8. Chronic obstructive pulmonary disease. 9. Hypernatremia. 10. Mild anemia. Recc: -Tele -Continue coreg/benazepril/HCTZ -Continue lasix but change to IV and add metolazone to make more negative -Free water for increased NA Problems: Consultation Date/Type/Reason Admit Date/Time Aug 10, 2016 at 01:56 Initial Consult Date 08/10/2016 Type of Consultation: Cardiology Reason for Consultation CHF Referring Provider: AMAN MOTA MD Exam/Review of Systems Vital Signs Vitals Vital Signs Date Time Temp Pulse Resp B/P Pulse Ox O2 Delivery O2 Flow Rate FiO2 08/12/16 12:03 66 08/12/16 11:08 98.0 18 135/58 98 08/12/16 08:17 2.0 08/12/16 08:17 Nasal Cannula 08/10/16 13:48 21 Intake and Output 08/11/16 08/11/16 08/12/16 15:00 23:00 07:00 Intake Total 240 ml 500 ml 400 ml Output Total 1200 ml 600 ml Balance 240 ml -700 ml -200 ml Exam Review of Systems: CONSTITUTIONAL: No fevers, chills. PULMONARY: mild sob CARDIOVASCULAR: No chest pain/palpitations GASTROINTESTINAL: No nausea/vomiting. GENITOURINARY: No hematuria/dysuria. MUSCULOSKELETAL: No myagias/arthalgias. PSYCHIATRIC: The patient denies depression. NEUROLOGIC: No weakness Constitutional: alert, oriented Psych: no complaints Head: normocephalic ENMT: mucosa pink and moist Neck: jvd (9 cm water), supple Respiratory: diminished breath sounds Cardiovascular: regular rate and rhythm Gastrointestinal: non-tender, soft Musculoskeletal: muscle tone (normal) Extremities: edema (none) Neurological: other (No focal deficits) Results Result Diagram: 08/12/16 0632 08/12/16 0632 Results 24 hrs Laboratory Tests Test 08/11/16 14:20 08/12/16 06:32 Anion Gap 16 19 H Blood Urea Nitrogen 27 H 35 H Calcium Level 9.0 9.4 Carbon Dioxide Level 27 27 Chloride Level 104 102 Creatinine 1.09 1.13 Glucose Level 118 93 Potassium Level 4.0 3.8 Sodium Level 143 144 Basophils # 0.0 Basophils % 0.3 Eosinophils # 0.2 Eosinophils % 4.4 Hematocrit 40.3 L Hemoglobin 13.7 L Lymphocytes # 1.4 Lymphocytes % 32.3 Mean Corpuscular Hemoglobin 31.0 Mean Corpuscular Hemoglobin Concent 33.9 Mean Corpuscular Volume 91.3 Mean Platelet Volume 8.2 Monocytes # 0.4 Monocytes % 9.8 Neutrophils # 2.3 Neutrophils % 53.2 Nucleated Red Blood Cells # 0.0 Nucleated Red Blood Cells % 0.0 Platelet Count 226 Red Blood Count 4.41 L Red Cell Distribution Width 12.9 White Blood Count 4.3 L Medications Medications Current Medications Ondansetron HCl (Zofran Inj) 4 mg Q6H PRN IV NAUSEA AND/OR VOMITING; Start at 10:30 Aspirin (Aspirin) 81 mg DAILY PO Last administered on 08/12/16 09:04; Admin Dose 81 MG; Start 08/11/16 at 09:00 Nitroglycerin (Nitroglycerin (Sl Tab) 0.4 Mg) 1 tab Q5M PRN SL CHEST PAIN; Start 08/10/16 at 10:30 Morphine Sulfate (morphine) 2 mg Q4H PRN IV PAIN LEVEL 7-10; Start 08/10/16 at 10:30 Pantoprazole (Protonix Tab) 40 mg DAILY@06 PO Last administered on 08/12/16 06 :26; Admin Dose 40 MG; Start 08/11/16 at 06:00 Enoxaparin Sodium (Lovenox) 30 mg DAILY SC Last administered on 08/12/16 09:16 ; Admin Dose 30 MG; Start 08/10/16 at 10:30 Atorvastatin Calcium (Lipitor) 40 mg QHS PO Last administered on 08/11/16 20: 41; Admin Dose 40 MG; Start 08/10/16 at 21:00 Carvedilol (Coreg) 12.5 mg BID PO Last administered on 08/12/16 09:06; Admin Dose 12.5 MG; Start 08/10/16 at 21:00 Benazepril HCl (Lotensin) 20 mg DAILY PO Last administered on 08/12/16 09:05; Admin Dose 20 MG; Start 08/11/16 at 09:00 Hydrochlorothiazide (Hydrochlorothiazide) 12.5 mg DAILY PO Last administered on 08/12/16 09:05; Admin Dose 12.5 MG; Start 08/11/16 at 09:00 Salmeterol Xinafoate/ Fluticasone (Advair 250/50 Diskus) 1 inh BID INH Last administered on 08/12/16 09:16; Admin Dose 1 INH; Start 08/10/16 at 13:00 Metolazone (Zaroxolyn) 5 mg DAILY PO Last administered on 08/12/16 09:04; Admin Dose 5 MG; Start 08/11/16 at 20:30 Acetaminophen (Tylenol Tab) 650 mg Q6H PRN PO PAIN AND OR ELEVATED TEMP Last administered on 08/11/16 22:28; Admin Dose 650 MG; Start 08/11/16 at 22:30 Acetaminophen/ Hydrocodone Bitart ([place] (5/325)) 1 tab Q6H PRN PO PAIN LEVEL 1 -5; Start 08/11/16 at 22:30 MYRNA OWEN Aug 12, 2016 13:58
--- NOTE | 2016-08-12 16:22 | PN ---
Date/Time of Note Date/Time of Note DATE: 08/12/16 TIME: 16:11 Assessment/Plan VTE Prophylaxis VTE Prophylaxis Intervention: SCD's Lines/Catheters IV C[facility]ter Type [facility]from [facility] Urinary Cath still in place: No Assessment/Plan Chief Complaint/Hosp Course ASSESSMENT AND PLAN: 1. Chest pain, rule out acute coronary syndrome. Cardiac enzymes are negative 3. Continue aspirin. Dr. Martinez is following the patient from cardiology standpoint. 2. Systolic and diastolic dysfunction congestive heart failure with EF 40%. Continue IV Lasix. Monitor electrolytes. 3. Hypertension. Continue patient on Coreg, lisinopril and hydrochlorothiazide. 4. Coronary artery disease with history of stent placement to RCA in 2011. Continue aspirin. 5. Chronic obstructive pulmonary disease. Continue Xopenex p.r.n. for shortness of breath and routine q. 4h. continue Advair. 6. Hyperlipidemia. Continue statins. Discussed with Dr. Martinez, patient still complains of shortness of breath, continue diuretics, monitor on telemetry, chest x-ray tomorrow. Continue Lovenox for deep venous thrombosis prophylaxis and Protonix for peptic ulcer disease prophylaxis. Further recommendations based on clinical course. Plan of care discussed with Dr. Blank. Problems: Subjective 24 Hr Interval Summary Free Text/Dictation Patient continues on supplemental oxygen, complains of shortness of breath on exertion. Exam/Review of Systems Vital Signs Vitals Vital Signs Date Time Temp Pulse Resp B/P Pulse Ox O2 Delivery O2 Flow Rate FiO2 08/12/16 16:00 71 08/12/16 15:36 98.1 18 139/50 97 08/12/16 13:55 Nasal Cannula 2.0 08/10/16 13:48 21 Intake and Output 08/11/16 08/11/16 08/12/16 15:00 23:00 07:00 Intake Total 240 ml 500 ml 400 ml Output Total 1200 ml 600 ml Balance 240 ml -700 ml -200 ml Exam PHYSICAL ASSESSMENT GENERAL: well-developed, well-nourished male, currently is awake, alert. HEENT: Head is atraumatic, normocephalic. Pupils equal, round, reactive to light and accommodation. Oral mucosa is pink and moist. NECK: Supple, no cervical lymphadenopathy, no thyromegaly. CHEST: Lungs clear bilaterally, slightly diminished at the bases. There are no rhonchi, wheezes or rales noted. CARDIOVASCULAR: Normal S1, S2. Systolic murmur. ABDOMEN: Round, soft, nondistended, nontender. There is no guarding, no rebound tenderness. EXTREMITIES: Mild edema 1+. There is no clubbing, cyanosis. Pulses equal bilaterally 2+. SKIN: There is no rash, petechiae noted. NEUROLOGICAL: The patient is awake, alert and oriented x4. No focal deficits noted. MUSCULOSKELETAL: Motor strength 5/5 in all extremities. Results Result Diagram: 08/12/16 0632 08/12/16 06 Results 24 hrs Laboratory Tests Test 08/12/16 06:32 Anion Gap 19 H Basophils # 0.0 Basophils % 0.3 Blood Urea Nitrogen 35 H Calcium Level 9.4 Carbon Dioxide Level 27 Chloride Level 102 Creatinine 1.13 Eosinophils # 0.2 Eosinophils % 4.4 Glucose Level 93 Hematocrit 40.3 L Hemoglobin 13.7 L Lymphocytes # 1.4 Lymphocytes % 32.3 Mean Corpuscular Hemoglobin 31.0 Mean Corpuscular Hemoglobin Concent 33.9 Mean Corpuscular Volume 91.3 Mean Platelet Volume 8.2 Monocytes # 0.4 Monocytes % 9.8 Neutrophils # 2.3 Neutrophils % 53.2 Nucleated Red Blood Cells # 0.0 Nucleated Red Blood Cells % 0.0 Platelet Count 226 Potassium Level 3.8 Red Blood Count 4.41 L Red Cell Distribution Width 12.9 Sodium Level 144 White Blood Count 4.3 L Medications Medications Current Medications Ondansetron HCl (Zofran Inj) 4 mg Q6H PRN IV NAUSEA AND/OR VOMITING; Start at 10:30 Aspirin (Aspirin) 81 mg DAILY PO Last administered on 08/12/16 09:04; Admin Dose 81 MG; Start 08/11/16 at 09:00 Nitroglycerin (Nitroglycerin (Sl Tab) 0.4 Mg) 1 tab Q5M PRN SL CHEST PAIN; Start 08/10/16 at 10:30 Morphine Sulfate (morphine) 2 mg Q4H PRN IV PAIN LEVEL 7-10; Start 08/10/16 at 10:30 Pantoprazole (Protonix Tab) 40 mg DAILY@06 PO Last administered on 08/12/16 06 :26; Admin Dose 40 MG; Start 08/11/16 at 06:00 Enoxaparin Sodium (Lovenox) 30 mg DAILY SC Last administered on 08/12/16 09:16 ; Admin Dose 30 MG; Start 08/10/16 at 10:30 Atorvastatin Calcium (Lipitor) 40 mg QHS PO Last administered on 08/11/16 20: 41; Admin Dose 40 MG; Start 08/10/16 at 21:00 Carvedilol (Coreg) 12.5 mg BID PO Last administered on 08/12/16 09:06; Admin Dose 12.5 MG; Start 08/10/16 at 21:00 Benazepril HCl (Lotensin) 20 mg DAILY PO Last administered on 08/12/16 09:05; Admin Dose 20 MG; Start 08/11/16 at 09:00 Hydrochlorothiazide (Hydrochlorothiazide) 12.5 mg DAILY PO Last administered on 08/12/16 09:05; Admin Dose 12.5 MG; Start 08/11/16 at 09:00 Salmeterol Xinafoate/ Fluticasone (Advair 250/50 Diskus) 1 inh BID INH Last administered on 08/12/16 09:16; Admin Dose 1 INH; Start 08/10/16 at 13:00 Metolazone (Zaroxolyn) 5 mg DAILY PO Last administered on 08/12/16 09:04; Admin Dose 5 MG; Start 08/11/16 at 20:30 Acetaminophen (Tylenol Tab) 650 mg Q6H PRN PO PAIN AND OR ELEVATED TEMP Last administered on 08/11/16 22:28; Admin Dose 650 MG; Start 08/11/16 at 22:30 Acetaminophen/ Hydrocodone Bitart ([place] (5/325)) 1 tab Q6H PRN PO PAIN LEVEL 1 -5; Start 08/11/16 at 22:30 DARION PRASAD Aug 12, 2016 16:21
[2016-08-12] MEDS: ATORVASTATIN 40 MG TAB PO SCH (21:23)
[2016-08-13] VITALS (13 sets, daily range): BP systolic 122–143; BP diastolic 52–65; PULSE 60–84; RESP 17–20
[2016-08-13] MEDS: ALBUTEROL/IPRATROPIUM (NEB) 3 ML AMP HHN SCH ×4 (01:43→20:21)
[2016-08-13] MEDS: PANTOPRAZOLE (EC) 40 MG TAB PO SCH (06:36)
[2016-08-13] MEDS: FUROSEMIDE 40 MG INJ IV SCH (06:37)
[2016-08-13 07:05] LABS: BASOPHILS % 0.3 % (0.0-2.0); EOSINOPHILS # 0.2 10^3/ul (0.0-0.5); EOSINOPHILS % 3.9 % (0.0-7.0); HEMATOCRIT 41.6 % (42.0-52.0); HEMOGLOBIN 14.5 g/dl (14.0-18.0); LYMPHOCYTES # 1.4 10^3/ul (0.8-2.9); LYMPHOCYTES % 29.7 % (15.0-51.0); MEAN CORPUSCULAR HEMOGLOBIN 31.4 pg (29.0-33.0); MEAN CORPUSCULAR HGB CONC 34.9 g/dl (32.0-37.0); MEAN CORPUSCULAR VOLUME 90.1 fl (82.0-101.0); MEAN PLATELET VOLUME 7.9 fl (7.4-10.4); MONOCYTE # 0.5 10^3/ul (0.3-0.9); MONOCYTES % 9.7 % (0.0-11.0); NEUTROPHIL # 2.7 10^3/ul (1.6-7.5); NEUTROPHILS % 56.4 % (39.0-77.0); PLATELET COUNT 239 10^3/UL (140-440); RED BLOOD COUNT 4.62 10^6/ul (4.70-6.10); RED CELL DISTRIBUTION WIDTH 13.3 % (11.5-14.5); UNCORRECTED WBC 4.8 10^3/ul (4.8-10.8); WHITE BLOOD COUNT 4.8 10^3/ul (4.8-10.8)
[2016-08-13 07:07] LABS: CONDITION 1
[2016-08-13 07:25] LABS: CREATININE 1.38 mg/dl (0.61-1.24)
[2016-08-13 07:26] LABS: CALCIUM 9.1 mg/dl (8.4-10.2); CHOL/HDL RATIO 3.7 RATIO
--- NOTE | 2016-08-13 08:39 | RADRPT ---
PROCEDURE: XR Chest. CLINICAL INDICATION: Chest pain. TECHNIQUE: Single frontal view of the chest was obtained COMPARISON: Chest x-ray 08/11/2016 07:52 a.m. FINDINGS: The left ventricle is enlarged. Pulmonary vasculature are is normal. The lungs are clear. No pleu ral effusion is noted. There are degenerative osteophytes in the thoracic spine. IMPRESSION: 1. Cardiomegaly. 2. There is no evidence of active cardiopulmonary disease. 3. Spondylosis of the thoracic spine. RPTAT:AAJJ Physician Patti Date Time Electronically viewed and signed by Ivan Vora Physician on 08/13/2016 08:39 /
[2016-08-13] MEDS: ASPIRIN 81 MG TAB PO SCH (09:02)
[2016-08-13] MEDS: METOLAZONE 5 MG TAB PO SCH (09:03)
[2016-08-13] MEDS: HYDROCHLOROTHIAZIDE 12.5 MG CAP PO SCH (09:03)
[2016-08-13] MEDS: BENAZEPRIL 20 MG TAB PO SCH (09:03)
[2016-08-13] MEDS: SALMETEROL/FLUTICASONE 250/50 INHA INH SCH ×2 (09:05→22:09)
[2016-08-13] MEDS: ENOXAPARIN 30 MG/0.3 ML SYG SC SCH (09:11)
--- NOTE | 2016-08-13 09:30 | PN ---
Date/Time of Note Date/Time of Note DATE: 08/13/16 TIME: 09:29 Assessment/Plan VTE Prophylaxis VTE Prophylaxis Intervention: other Lines/Catheters [facility] Urinary Cath still in place: No Assessment/Plan Chief Complaint/Hosp Course 1. Chest pain, rule out acute coronary syndrome. Cardiac enzymes are negative 3. Continue aspirin. Dr. Martinez is following the patient from cardiology standpoint. 2. Systolic and diastolic dysfunction congestive heart failure with EF 40%. Continue IV Lasix. Monitor electrolytes. 3. Hypertension. Continue patient on Coreg, lisinopril and hydrochlorothiazide. 4. Coronary artery disease with history of stent placement to RCA in 2011. Continue aspirin. 5. Chronic obstructive pulmonary disease. Continue Xopenex p.r.n. for shortness of breath and routine q. 4h. continue Advair. 6. Hyperlipidemia. Continue statins. Problems: Subjective 24 Hr Interval Summary Free Text/Dictation Patient denies chest pain Exam/Review of Systems Vital Signs Vitals Vital Signs Date Time Temp Pulse Resp B/P Pulse Ox O2 Delivery O2 Flow Rate FiO2 08/13/16 08:42 63 08/13/16 07:59 Nasal Cannula 2.0 08/13/16 07:53 97.4 20 130/61 96 08/10/16 13:48 21 Intake and Output 08/12/16 08/12/16 08/13/16 15:00 23:00 07:00 Intake Total 950 ml 120 ml Output Total 1850 ml Balance -900 ml 120 ml Exam Constitutional: well developed Head: atraumatic, normocephalic Neck: supple Respiratory: clear to auscultation Cardiovascular: regular rate and rhythm Gastrointestinal: non-tender, soft Results Result Diagram: 08/13/16 0639 08/13/16 0639 Results 24 hrs Laboratory Tests Test 08/13/16 06:39 Anion Gap 19 H Basophils # 0.0 Basophils % 0.3 Blood Urea Nitrogen 53 H Calcium Level 9.1 Carbon Dioxide Level 30 Chloride Level 97 Cholesterol Level 141 Cholesterol/HDL Ratio 3.7 Creatinine 1.38 H Eosinophils # 0.2 Eosinophils % 3.9 Glucose Level 109 HDL Cholesterol 38 Hematocrit 41.6 L Hemoglobin 14.5 LDL Cholesterol, Calculated 73 Lymphocytes # 1.4 Lymphocytes % 29.7 Mean Corpuscular Hemoglobin 31.4 Mean Corpuscular Hemoglobin Concent 34.9 Mean Corpuscular Volume 90.1 Mean Platelet Volume 7.9 Monocytes # 0.5 Monocytes % 9.7 Neutrophils # 2.7 Neutrophils % 56.4 Nucleated Red Blood Cells # 0.0 Nucleated Red Blood Cells % 0.0 Platelet Count 239 Potassium Level 4.0 Red Blood Count 4.62 L Red Cell Distribution Width 13.3 Sodium Level 142 Triglycerides Level 148 White Blood Count 4.8 Medications Medications Current Medications Ondansetron HCl (Zofran Inj) 4 mg Q6H PRN IV NAUSEA AND/OR VOMITING; Start at 10:30 Aspirin (Aspirin) 81 mg DAILY PO Last administered on 08/13/16 09:02; Admin Dose 81 MG; Start 08/11/16 at 09:00 Nitroglycerin (Nitroglycerin (Sl Tab) 0.4 Mg) 1 tab Q5M PRN SL CHEST PAIN; Start 08/10/16 at 10:30 Morphine Sulfate (morphine) 2 mg Q4H PRN IV PAIN LEVEL 7-10 Last administered on 08/12/16 22:26; Admin Dose 2 MG; Start 08/10/16 at 10:30 Pantoprazole (Protonix Tab) 40 mg DAILY@06 PO Last administered on 08/13/16 06 :36; Admin Dose 40 MG; Start 08/11/16 at 06:00 Enoxaparin Sodium (Lovenox) 30 mg DAILY SC Last administered on 08/13/16 09:11 ; Admin Dose 30 MG; Start 08/10/16 at 10:30 Atorvastatin Calcium (Lipitor) 40 mg QHS PO Last administered on 08/12/16 21: 23; Admin Dose 40 MG; Start 08/10/16 at 21:00 Carvedilol (Coreg) 12.5 mg BID PO Last administered on 08/13/16 09:04; Admin Dose 12.5 MG; Start 08/10/16 at 21:00 Benazepril HCl (Lotensin) 20 mg DAILY PO Last administered on 08/13/16 09:03; Admin Dose 20 MG; Start 08/11/16 at 09:00 Hydrochlorothiazide (Hydrochlorothiazide) 12.5 mg DAILY PO Last administered on 08/13/16 09:03; Admin Dose 12.5 MG; Start 08/11/16 at 09:00 Salmeterol Xinafoate/ Fluticasone (Advair 250/50 Diskus) 1 inh BID INH Last administered on 08/13/16 09:05; Admin Dose 1 INH; Start 08/10/16 at 13:00 Metolazone (Zaroxolyn) 5 mg DAILY PO Last administered on 08/13/16 09:03; Admin Dose 5 MG; Start 08/11/16 at 20:30 Acetaminophen (Tylenol Tab) 650 mg Q6H PRN PO PAIN AND OR ELEVATED TEMP Last administered on 08/11/16 22:28; Admin Dose 650 MG; Start 08/11/16 at 22:30 Acetaminophen/ Hydrocodone Bitart ([place] (5/325)) 1 tab Q6H PRN PO PAIN LEVEL 1 -5; Start 08/11/16 at 22:30 JARRETT FENTON Aug 13, 2016 09:30
--- NOTE | 2016-08-13 13:00 | CONS ---
Date/Time of Note Date/Time of Note DATE: 08/13/16 TIME: 12:57 Assessment/Plan Assessment/Plan Chief Complaint/Hosp Course IMPRESSION: 1. Chest pain, assess for acute coronary syndrome.-negative troponin x3/EF 40% by echo this admit . Lexiscan 02/08 in my office with no ischemia/positive prior [place] EF 45% 2. Shortness of breath, assess for congestive heart failure. 3. Abnormal electrocardiogram, assess for acute coronary syndrome. 4. Hypertension, under reasonable control. 5. History of dyslipidemia. 6. History of percutaneous transluminal coronary angioplasty and stent placement in 2011 to the right coronary artery. 7. History of stress test January 2016 in my partners office, unknown results at this time. 8. Chronic obstructive pulmonary disease. 9. Hypernatremia-improved 10. Mild anemia. 11.Renal insuff-likely due to overdiuresis Recc: -Tele -Continue coreg/benazepril/HCTZ -Decrease lasix to daily and will change back to PO with improved volume status -D/C planning with outpatient f/u 2 weeks with myself Problems: Consultation Date/Type/Reason Admit Date/Time Aug 10, 2016 at 01:56 Initial Consult Date 08/10/2016 Type of Consultation: Cardiology Reason for Consultation CHF Referring Provider: AMAN MOTA MD Exam/Review of Systems Vital Signs Vitals Vital Signs Date Time Temp Pulse Resp B/P Pulse Ox O2 Delivery O2 Flow Rate FiO2 08/13/16 12:21 71 08/13/16 11:37 98.5 18 129/62 96 08/13/16 09:27 21 08/13/16 07:59 Nasal Cannula 2.0 Intake and Output 08/12/16 08/12/16 08/13/16 15:00 23:00 07:00 Intake Total 950 ml 120 ml Output Total 1850 ml Balance -900 ml 120 ml Exam Review of Systems: CONSTITUTIONAL: No fevers, chills. PULMONARY: mild sob CARDIOVASCULAR: No chest pain/palpitations GASTROINTESTINAL: No nausea/vomiting. GENITOURINARY: No hematuria/dysuria. MUSCULOSKELETAL: No myagias/arthalgias. PSYCHIATRIC: The patient denies depression. NEUROLOGIC: No weakness Constitutional: alert, oriented Psych: no complaints Head: normocephalic ENMT: mucosa pink and moist Neck: jvd (8 cm water), supple Respiratory: clear to auscultation Cardiovascular: regular rate and rhythm Gastrointestinal: non-tender, soft Musculoskeletal: muscle tone (normal) Extremities: edema (none) Neurological: other (No focal deficits) Results Result Diagram: 08/13/16 0639 08/13/16 0639 Results 24 hrs Laboratory Tests Test 08/13/16 06:39 Anion Gap 19 H Basophils # 0.0 Basophils % 0.3 Blood Urea Nitrogen 53 H Calcium Level 9.1 Carbon Dioxide Level 30 Chloride Level 97 Cholesterol Level 141 Cholesterol/HDL Ratio 3.7 Creatinine 1.38 H Eosinophils # 0.2 Eosinophils % 3.9 Glucose Level 109 HDL Cholesterol 38 Hematocrit 41.6 L Hemoglobin 14.5 LDL Cholesterol, Calculated 73 Lymphocytes # 1.4 Lymphocytes % 29.7 Mean Corpuscular Hemoglobin 31.4 Mean Corpuscular Hemoglobin Concent 34.9 Mean Corpuscular Volume 90.1 Mean Platelet Volume 7.9 Monocytes # 0.5 Monocytes % 9.7 Neutrophils # 2.7 Neutrophils % 56.4 Nucleated Red Blood Cells # 0.0 Nucleated Red Blood Cells % 0.0 Platelet Count 239 Potassium Level 4.0 Red Blood Count 4.62 L Red Cell Distribution Width 13.3 Sodium Level 142 Triglycerides Level 148 White Blood Count 4.8 Medications Medications Current Medications Ondansetron HCl (Zofran Inj) 4 mg Q6H PRN IV NAUSEA AND/OR VOMITING; Start at 10:30 Aspirin (Aspirin) 81 mg DAILY PO Last administered on 08/13/16 09:02; Admin Dose 81 MG; Start 08/11/16 at 09:00 Nitroglycerin (Nitroglycerin (Sl Tab) 0.4 Mg) 1 tab Q5M PRN SL CHEST PAIN; Start 08/10/16 at 10:30 Morphine Sulfate (morphine) 2 mg Q4H PRN IV PAIN LEVEL 7-10 Last administered on 08/12/16 22:26; Admin Dose 2 MG; Start 08/10/16 at 10:30 Pantoprazole (Protonix Tab) 40 mg DAILY@06 PO Last administered on 08/13/16 06 :36; Admin Dose 40 MG; Start 08/11/16 at 06:00 Enoxaparin Sodium (Lovenox) 30 mg DAILY SC Last administered on 08/13/16 09:11 ; Admin Dose 30 MG; Start 08/10/16 at 10:30 Atorvastatin Calcium (Lipitor) 40 mg QHS PO Last administered on 08/12/16 21: 23; Admin Dose 40 MG; Start 08/10/16 at 21:00 Carvedilol (Coreg) 12.5 mg BID PO Last administered on 08/13/16 09:04; Admin Dose 12.5 MG; Start 08/10/16 at 21:00 Benazepril HCl (Lotensin) 20 mg DAILY PO Last administered on 08/13/16 09:03; Admin Dose 20 MG; Start 08/11/16 at 09:00 Hydrochlorothiazide (Hydrochlorothiazide) 12.5 mg DAILY PO Last administered on 08/13/16 09:03; Admin Dose 12.5 MG; Start 08/11/16 at 09:00 Salmeterol Xinafoate/ Fluticasone (Advair 250/50 Diskus) 1 inh BID INH Last administered on 08/13/16 09:05; Admin Dose 1 INH; Start 08/10/16 at 13:00 Metolazone (Zaroxolyn) 5 mg DAILY PO Last administered on 08/13/16 09:03; Admin Dose 5 MG; Start 08/11/16 at 20:30 Acetaminophen (Tylenol Tab) 650 mg Q6H PRN PO PAIN AND OR ELEVATED TEMP Last administered on 08/11/16 22:28; Admin Dose 650 MG; Start 08/11/16 at 22:30 Acetaminophen/ Hydrocodone Bitart ([place] (5/325)) 1 tab Q6H PRN PO PAIN LEVEL 1 -5; Start 08/11/16 at 22:30 MYRNA OWEN Aug 13, 2016 13:00
[2016-08-13] MEDS: ATORVASTATIN 40 MG TAB PO SCH (22:09)
[2016-08-14] VITALS (14 sets, daily range): BP systolic 125–138; BP diastolic 51–80; PULSE 68–150; RESP 16–20
[2016-08-14] MEDS: ALBUTEROL/IPRATROPIUM (NEB) 3 ML AMP HHN SCH ×4 (01:29→19:52)
[2016-08-14] MEDS: PANTOPRAZOLE (EC) 40 MG TAB PO SCH (06:50)
[2016-08-14 07:27] LABS: POTASSIUM 3.4 mmol/L (3.5-5.1)
[2016-08-14 07:30] LABS: CREATININE 1.5 mg/dl (0.61-1.24)
[2016-08-14 07:31] LABS: CALCIUM 9.1 mg/dl (8.4-10.2)
[2016-08-14] MEDS: SALMETEROL/FLUTICASONE 250/50 INHA INH SCH ×2 (08:43→19:49)
[2016-08-14] MEDS: ASPIRIN 81 MG TAB PO SCH (08:43)
[2016-08-14] MEDS: HYDROCHLOROTHIAZIDE 12.5 MG CAP PO SCH (08:44)
[2016-08-14] MEDS: BENAZEPRIL 20 MG TAB PO SCH (08:44)
[2016-08-14] MEDS ORDERED: FUROSEMIDE 40 MG TAB PO SCH (09:00)
[2016-08-14] MEDS: ENOXAPARIN 30 MG/0.3 ML SYG SC SCH (09:02)
--- NOTE | 2016-08-14 11:19 | PN ---
Date/Time of Note Date/Time of Note DATE: 08/14/16 TIME: 11:19 Assessment/Plan VTE Prophylaxis VTE Prophylaxis Intervention: other Lines/Catheters [facility] Urinary Cath still in place: No Assessment/Plan Chief Complaint/Hosp Course 1. Chest pain, rule out acute coronary syndrome. Cardiac enzymes are negative 3. Continue aspirin. Dr. Martinez is following the patient from cardiology standpoint. 2. Systolic and diastolic dysfunction congestive heart failure with EF 40%. Continue IV Lasix. Monitor electrolytes. 3. Hypertension. Continue patient on Coreg, lisinopril and hydrochlorothiazide. 4. Coronary artery disease with history of stent placement to RCA in 2011. Continue aspirin. 5. Chronic obstructive pulmonary disease. Continue Xopenex p.r.n. for shortness of breath and routine q. 4h. continue Advair. 6. Hyperlipidemia. Continue statins. Problems: Subjective 24 Hr Interval Summary Free Text/Dictation Patient denies chest pain, is having less shortness of breath Exam/Review of Systems Vital Signs Vitals Vital Signs Date Time Temp Pulse Resp B/P Pulse Ox O2 Delivery O2 Flow Rate FiO2 08/14/16 08:03 68 08/14/16 07:46 97.4 20 125/51 96 08/14/16 07:43 Nasal Cannula 2.0 08/13/16 09:27 21 Intake and Output 08/13/16 08/13/16 08/14/16 15:00 23:00 07:00 Intake Total 120 ml 1000 ml Output Total 550 ml 1100 ml Balance -430 ml -100 ml Exam Constitutional: well developed Head: atraumatic, normocephalic Neck: supple Respiratory: clear to auscultation Cardiovascular: regular rate and rhythm Gastrointestinal: non-tender, soft Results Result Diagram: 08/13/16 0639 08/14/16 0626 Results 24 hrs Laboratory Tests Test 08/14/16 06:26 Anion Gap 19 H Blood Urea Nitrogen 68 H Calcium Level 9.1 Carbon Dioxide Level 30 Chloride Level 95 L Creatinine 1.50 H Glucose Level 121 Potassium Level 3.4 L Sodium Level 141 Medications Medications Current Medications Ondansetron HCl (Zofran Inj) 4 mg Q6H PRN IV NAUSEA AND/OR VOMITING; Start at 10:30 Aspirin (Aspirin) 81 mg DAILY PO Last administered on 08/14/16 08:43; Admin Dose 81 MG; Start 08/11/16 at 09:00 Nitroglycerin (Nitroglycerin (Sl Tab) 0.4 Mg) 1 tab Q5M PRN SL CHEST PAIN; Start 08/10/16 at 10:30 Morphine Sulfate (morphine) 2 mg Q4H PRN IV PAIN LEVEL 7-10 Last administered on 08/12/16 22:26; Admin Dose 2 MG; Start 08/10/16 at 10:30 Pantoprazole (Protonix Tab) 40 mg DAILY@06 PO Last administered on 08/14/16 06 :50; Admin Dose 40 MG; Start 08/11/16 at 06:00 Enoxaparin Sodium (Lovenox) 30 mg DAILY SC Last administered on 08/14/16 09:02 ; Admin Dose 30 MG; Start 08/10/16 at 10:30 Atorvastatin Calcium (Lipitor) 40 mg QHS PO Last administered on 08/13/16 22: 09; Admin Dose 40 MG; Start 08/10/16 at 21:00 Carvedilol (Coreg) 12.5 mg BID PO Last administered on 08/14/16 08:45; Admin Dose 12.5 MG; Start 08/10/16 at 21:00 Benazepril HCl (Lotensin) 20 mg DAILY PO Last administered on 08/14/16 08:44; Admin Dose 20 MG; Start 08/11/16 at 09:00 Hydrochlorothiazide (Hydrochlorothiazide) 12.5 mg DAILY PO Last administered on 08/14/16 08:44; Admin Dose 12.5 MG; Start 08/11/16 at 09:00 Salmeterol Xinafoate/ Fluticasone (Advair 250/50 Diskus) 1 inh BID INH Last administered on 08/14/16 08:43; Admin Dose 1 INH; Start 08/10/16 at 13:00 Acetaminophen (Tylenol Tab) 650 mg Q6H PRN PO PAIN AND OR ELEVATED TEMP Last administered on 08/11/16 22:28; Admin Dose 650 MG; Start 08/11/16 at 22:30 Acetaminophen/ Hydrocodone Bitart ([place] (5/325)) 1 tab Q6H PRN PO PAIN LEVEL 1 -5; Start 08/11/16 at 22:30 Furosemide (Lasix) 40 mg DAILY PO Last administered on 08/14/16t 08:44; Admin Dose 40 MG; Start 08/14/16 at 09:00 JARRETT FENTON Aug 14, 2016 11:19
--- NOTE | 2016-08-14 11:53 | CONS ---
Date/Time of Note Date/Time of Note DATE: 08/14/16 TIME: 11:50 Assessment/Plan Assessment/Plan Chief Complaint/Hosp Course IMPRESSION: 1. Chest pain, assess for acute coronary syndrome.-negative troponin x3/EF 40% by echo this admit . Lexiscan 02/08 in my office with no ischemia/positive prior [place] EF 45% 2. Shortness of breath, assess for congestive heart failure. 3. Abnormal electrocardiogram, assess for acute coronary syndrome. 4. Hypertension, under reasonable control. 5. History of dyslipidemia. 6. History of percutaneous transluminal coronary angioplasty and stent placement in 2011 to the right coronary artery. 7. History of stress test January 2016 in my partners office, unknown results at this time. 8. Chronic obstructive pulmonary disease. 9. Hypernatremia-improved 10. Mild anemia. 11.Renal insuff-likely due to overdiuresis Recc: -Tele -Continue coreg/benazepril/HCTZ -Hold lasix and follow creatnoine and possibly given IVF gently back -D/C planning with outpatient f/u 2 weeks with myself Problems: Consultation Date/Type/Reason Admit Date/Time Aug 10, 2016 at 01:56 Initial Consult Date 08/10/2016 Type of Consultation: Cardiology Reason for Consultation CHF Referring Provider: AMAN MOTA MD Exam/Review of Systems Vital Signs Vitals Vital Signs Date Time Temp Pulse Resp B/P Pulse Ox O2 Delivery O2 Flow Rate FiO2 08/14/16 11:21 97.6 74 20 131/61 98 08/14/16 07:43 Nasal Cannula 2.0 08/13/16 09:27 21 Intake and Output 08/13/16 08/13/16 08/14/16 15:00 23:00 07:00 Intake Total 120 ml 1000 ml Output Total 550 ml 1100 ml Balance -430 ml -100 ml Exam Review of Systems: CONSTITUTIONAL: No fevers, chills. PULMONARY: No sob CARDIOVASCULAR: No chest pain/palpitations GASTROINTESTINAL: No nausea/vomiting. GENITOURINARY: No hematuria/dysuria. MUSCULOSKELETAL: No myagias/arthalgias. PSYCHIATRIC: The patient denies depression. NEUROLOGIC: No weakness Constitutional: alert, oriented Psych: no complaints Head: normocephalic ENMT: mucosa pink and moist Neck: jvd (8 cm water), supple Respiratory: diminished breath sounds (at bases/B) Cardiovascular: regular rate and rhythm Gastrointestinal: non-tender, soft Musculoskeletal: muscle tone (normal) Extremities: edema (None) Results Result Diagram: 08/13/16 0639 08/14/16 0626 Results 24 hrs Laboratory Tests Test 08/14/16 06:26 Anion Gap 19 H Blood Urea Nitrogen 68 H Calcium Level 9.1 Carbon Dioxide Level 30 Chloride Level 95 L Creatinine 1.50 H Glucose Level 121 Potassium Level 3.4 L Sodium Level 141 Medications Medications Current Medications Ondansetron HCl (Zofran Inj) 4 mg Q6H PRN IV NAUSEA AND/OR VOMITING; Start at 10:30 Aspirin (Aspirin) 81 mg DAILY PO Last administered on 08/14/16 08:43; Admin Dose 81 MG; Start 08/11/16 at 09:00 Nitroglycerin (Nitroglycerin (Sl Tab) 0.4 Mg) 1 tab Q5M PRN SL CHEST PAIN; Start 08/10/16 at 10:30 Morphine Sulfate (morphine) 2 mg Q4H PRN IV PAIN LEVEL 7-10 Last administered on 08/12/16 22:26; Admin Dose 2 MG; Start 08/10/16 at 10:30 Pantoprazole (Protonix Tab) 40 mg DAILY@06 PO Last administered on 08/14/16 06 :50; Admin Dose 40 MG; Start 08/11/16 at 06:00 Enoxaparin Sodium (Lovenox) 30 mg DAILY SC Last administered on 08/14/16 09:02 ; Admin Dose 30 MG; Start 08/10/16 at 10:30 Atorvastatin Calcium (Lipitor) 40 mg QHS PO Last administered on 08/13/16 22: 09; Admin Dose 40 MG; Start 08/10/16 at 21:00 Carvedilol (Coreg) 12.5 mg BID PO Last administered on 08/14/16 08:45; Admin Dose 12.5 MG; Start 08/10/16 at 21:00 Benazepril HCl (Lotensin) 20 mg DAILY PO Last administered on 08/14/16 08:44; Admin Dose 20 MG; Start 08/11/16 at 09:00 Hydrochlorothiazide (Hydrochlorothiazide) 12.5 mg DAILY PO Last administered on 08/14/16 08:44; Admin Dose 12.5 MG; Start 08/11/16 at 09:00 Salmeterol Xinafoate/ Fluticasone (Advair 250/50 Diskus) 1 inh BID INH Last administered on 08/14/16 08:43; Admin Dose 1 INH; Start 08/10/16 at 13:00 Acetaminophen (Tylenol Tab) 650 mg Q6H PRN PO PAIN AND OR ELEVATED TEMP Last administered on 08/11/16 22:28; Admin Dose 650 MG; Start 08/11/16 at 22:30 Acetaminophen/ Hydrocodone Bitart ([place] (5/325)) 1 tab Q6H PRN PO PAIN LEVEL 1 -5; Start 08/11/16 at 22:30 Furosemide (Lasix) 40 mg DAILY PO Last administered on 08/14/16 08:44; Admin Dose 40 MG; Start 08/14/16 at 09:00 MYRNA OWEN Aug 14, 2016 11:53
[2016-08-14] MEDS: ATORVASTATIN 40 MG TAB PO SCH (19:47)
[2016-08-15] VITALS (18 sets, daily range): BP systolic 130–150; BP diastolic 54–86; PULSE 66–79; RESP 15–20
[2016-08-15] MEDS: ALBUTEROL/IPRATROPIUM (NEB) 3 ML AMP HHN SCH ×4 (02:23→20:49)
[2016-08-15] MEDS: PANTOPRAZOLE (EC) 40 MG TAB PO SCH (05:18)
[2016-08-15 06:35] LABS: POTASSIUM 3.9 mmol/L (3.5-5.1)
[2016-08-15 06:37] LABS: CREATININE 1.17 mg/dl (0.61-1.24)
[2016-08-15 06:38] LABS: CALCIUM 9.1 mg/dl (8.4-10.2)
[2016-08-15] MEDS: ASPIRIN 81 MG TAB PO SCH (09:03)
[2016-08-15] MEDS: SALMETEROL/FLUTICASONE 250/50 INHA INH SCH ×2 (09:03→20:16)
[2016-08-15] MEDS: BENAZEPRIL 20 MG TAB PO SCH (09:04)
[2016-08-15] MEDS: HYDROCHLOROTHIAZIDE 12.5 MG CAP PO SCH (09:04)
[2016-08-15] MEDS: ENOXAPARIN 30 MG/0.3 ML SYG SC SCH (09:06)
--- NOTE | 2016-08-15 12:25 | CONS ---
Date/Time of Note Date/Time of Note DATE: 08/15/16 TIME: 12:22 Assessment/Plan Assessment/Plan Chief Complaint/Hosp Course IMPRESSION: 1. Chest pain, assess for acute coronary syndrome.-negative troponin x3/EF 40% by echo this admit . Lexiscan 02/08 in my office with no ischemia/positive prior [place] EF 45% 2. Shortness of breath, assess for congestive heart failure. 3. Abnormal electrocardiogram, assess for acute coronary syndrome. 4. Hypertension, under reasonable control. 5. History of dyslipidemia. 6. History of percutaneous transluminal coronary angioplasty and stent placement in 2011 to the right coronary artery. 7. History of stress test January 2016 in my partners office, unknown results at this time. 8. Chronic obstructive pulmonary disease. 9. Hypernatremia-improved 10. Mild anemia. 11.Renal insuff-likely due to overdiuresis-now improved 12. 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 Recc: -Tele -Increase coreg to suppress further bouts of SVT -Continue benazepril/HCTZ -Resume daily PO lasix 40 mg at D/C -D/C planning with outpatient f/u 2 weeks with myself Problems: Consultation Date/Type/Reason Admit Date/Time Aug 10, 2016 at 01:56 Initial Consult Date 08/10/2016 Type of Consultation: Cardiology Reason for Consultation CHF Referring Provider: AMAN MOTA MD Exam/Review of Systems Vital Signs Vitals Vital Signs Date Time Temp Pulse Resp B/P Pulse Ox O2 Delivery O2 Flow Rate FiO2 08/15/16 11:14 97.7 75 15 137/62 95 08/15/16 09:00 Nasal Cannula 2.0 08/15/16 08:25 28 Intake and Output 08/14/16 08/14/16 08/15/16 15:00 23:00 07:00 Intake Total 240 ml 560 ml 250 ml Output Total 1000 ml 750 ml Balance 240 ml -440 ml -500 ml Exam Review of Systems: CONSTITUTIONAL: No fevers, chills. PULMONARY: No sob CARDIOVASCULAR: Intermittent palpitations GASTROINTESTINAL: No nausea/vomiting. GENITOURINARY: No hematuria/dysuria. MUSCULOSKELETAL: No myagias/arthalgias. PSYCHIATRIC: The patient denies depression. NEUROLOGIC: No weakness Constitutional: alert, oriented Psych: no complaints Head: normocephalic ENMT: mucosa pink and moist Neck: jvd (8 cm water), supple Respiratory: clear to auscultation Cardiovascular: regular rate and rhythm Gastrointestinal: non-tender, soft Musculoskeletal: muscle tone (normal) Extremities: edema (none) Neurological: other (No focal deficits) Results Result Diagram: 08/13/16 0639 08/15/16 0538 Results 24 hrs Laboratory Tests Test 08/15/16 05:38 Anion Gap 18 H Blood Urea Nitrogen 66 H Calcium Level 9.1 Carbon Dioxide Level 29 Chloride Level 98 Creatinine 1.17 Glucose Level 107 Potassium Level 3.9 Sodium Level 141 Medications Medications Current Medications Ondansetron HCl (Zofran Inj) 4 mg Q6H PRN IV NAUSEA AND/OR VOMITING; Start at 10:30 Aspirin (Aspirin) 81 mg DAILY PO Last administered on 08/15/16 09:03; Admin Dose 81 MG; Start 08/11/16 at 09:00 Nitroglycerin (Nitroglycerin (Sl Tab) 0.4 Mg) 1 tab Q5M PRN SL CHEST PAIN; Start 08/10/16 at 10:30 Morphine Sulfate (morphine) 2 mg Q4H PRN IV PAIN LEVEL 7-10 Last administered on 08/12/16 22:26; Admin Dose 2 MG; Start 08/10/16 at 10:30 Pantoprazole (Protonix Tab) 40 mg DAILY@06 PO Last administered on 08/15/16 05 :18; Admin Dose 40 MG; Start 08/11/16 at 06:00 Enoxaparin Sodium (Lovenox) 30 mg DAILY SC Last administered on 08/15/16 09:06 ; Admin Dose 30 MG; Start 08/10/16 at 10:30 Atorvastatin Calcium (Lipitor) 40 mg QHS PO Last administered on 08/14/16 19: 47; Admin Dose 40 MG; Start 08/10/16 at 21:00 Carvedilol (Coreg) 12.5 mg BID PO Last administered on 08/15/16 09:04; Admin Dose 12.5 MG; Start 08/10/16 at 21:00 Benazepril HCl (Lotensin) 20 mg DAILY PO Last administered on 08/15/16 09:04; Admin Dose 20 MG; Start 08/11/16 at 09:00 Hydrochlorothiazide (Hydrochlorothiazide) 12.5 mg DAILY PO Last administered on 08/15/16 09:04; Admin Dose 12.5 MG; Start 08/11/16 at 09:00 Salmeterol Xinafoate/ Fluticasone (Advair 250/50 Diskus) 1 inh BID INH Last administered on 08/15/16 09:03; Admin Dose 1 INH; Start 08/10/16 at 13:00 Acetaminophen (Tylenol Tab) 650 mg Q6H PRN PO PAIN AND OR ELEVATED TEMP Last administered on 08/11/16 22:28; Admin Dose 650 MG; Start 08/11/16 at 22:30 Acetaminophen/ Hydrocodone Bitart ([place] (5/325)) 1 tab Q6H PRN PO PAIN LEVEL 1 -5; Start 08/11/16 at 22:30 Furosemide (Lasix) 40 mg DAILY PO Last administered on 08/14/16 08:44; Admin Dose 40 MG; Start 08/14/16 at 09:00; Status Future Hold MYRNA OWEN Aug 15, 2016 12:25
--- NOTE | 2016-08-15 17:25 | PN ---
Date/Time of Note Date/Time of Note DATE: 08/15/16 TIME: 17:24 Assessment/Plan VTE Prophylaxis VTE Prophylaxis Intervention: SCD's Lines/Catheters [facility] Urinary Cath still in place: No Assessment/Plan Chief Complaint/Hosp Course ASSESSMENT AND PLAN: 1. Chest pain, rule out acute coronary syndrome. Cardiac enzymes are negative 3. Continue aspirin. Dr. Martinez is following the patient from cardiology standpoint. 2. Systolic and diastolic dysfunction congestive heart failure with EF 40%. Continue IV Lasix. Monitor electrolytes. 3. Hypertension. Continue patient on Coreg, lisinopril and hydrochlorothiazide. 4. Coronary artery disease with history of stent placement to RCA in 2011. Continue aspirin. 5. Chronic obstructive pulmonary disease. Continue Xopenex p.r.n. for shortness of breath and routine q. 4h. continue Advair. 6. Hyperlipidemia. Continue statins. Anticipate discharge home tomorrow if patient tolerates increased dose of Coreg Continue Lovenox for deep venous thrombosis prophylaxis and Protonix for peptic ulcer disease prophylaxis. Further recommendations based on clinical course. Plan of care discussed with Dr. Blank. Problems: Subjective 24 Hr Interval Summary Free Text/Dictation Patient was episode of atrial tachycardia, Coreg was increased, patient denies any chest pain complains of occasional palpitations. Exam/Review of Systems Vital Signs Vitals Vital Signs Date Time Temp Pulse Resp B/P Pulse Ox O2 Delivery O2 Flow Rate FiO2 08/15/16 16:59 72 08/15/16 16:01 2.0 08/15/16 15:38 98.2 16 150/86 97 08/15/16 14:34 Nasal Cannula 28 Intake and Output 08/14/16 08/14/16 08/15/16 15:00 23:00 07:00 Intake Total 240 ml 560 ml 250 ml Output Total 1000 ml 750 ml Balance 240 ml -440 ml -500 ml Exam PHYSICAL ASSESSMENT GENERAL: well-developed, well-nourished male, currently is awake, alert. HEENT: Head is atraumatic, normocephalic. Pupils equal, round, reactive to light and accommodation. Oral mucosa is pink and moist. NECK: Supple, no cervical lymphadenopathy, no thyromegaly. CHEST: Lungs clear bilaterally, slightly diminished at the bases. There are no rhonchi, wheezes or rales noted. CARDIOVASCULAR: Normal S1, S2. Systolic murmur. ABDOMEN: Round, soft, nondistended, nontender. There is no guarding, no rebound tenderness. EXTREMITIES: Mild edema 1+. There is no clubbing, cyanosis. Pulses equal bilaterally 2+. SKIN: There is no rash, petechiae noted. NEUROLOGICAL: The patient is awake, alert and oriented x4. No focal deficits noted. MUSCULOSKELETAL: Motor strength 5/5 in all extremities. Results Result Diagram: 08/13/16 0639 08/15/16 0538 Results 24 hrs Laboratory Tests Test 08/15/16 05:38 Anion Gap 18 H Blood Urea Nitrogen 66 H Calcium Level 9.1 Carbon Dioxide Level 29 Chloride Level 98 Creatinine 1.17 Glucose Level 107 Potassium Level 3.9 Sodium Level 141 Medications Medications Current Medications Ondansetron HCl (Zofran Inj) 4 mg Q6H PRN IV NAUSEA AND/OR VOMITING; Start at 10:30 Aspirin (Aspirin) 81 mg DAILY PO Last administered on 08/15/16 09:03; Admin Dose 81 MG; Start 08/11/16 at 09:00 Nitroglycerin (Nitroglycerin (Sl Tab) 0.4 Mg) 1 tab Q5M PRN SL CHEST PAIN; Start 08/10/16 at 10:30 Morphine Sulfate (morphine) 2 mg Q4H PRN IV PAIN LEVEL 7-10 Last administered on 08/12/16 22:26; Admin Dose 2 MG; Start 08/10/16 at 10:30 Pantoprazole (Protonix Tab) 40 mg DAILY@06 PO Last administered on 08/15/16 05 :18; Admin Dose 40 MG; Start 08/11/16 at 06:00 Enoxaparin Sodium (Lovenox) 30 mg DAILY SC Last administered on 08/15/16 09:06 ; Admin Dose 30 MG; Start 08/10/16 at 10:30 Atorvastatin Calcium (Lipitor) 40 mg QHS PO Last administered on 08/14/16 19: 47; Admin Dose 40 MG; Start 08/10/16 at 21:00 Benazepril HCl (Lotensin) 20 mg DAILY PO Last administered on 08/15/16 09:04; Admin Dose 20 MG; Start 08/11/16 at 09:00 Hydrochlorothiazide (Hydrochlorothiazide) 12.5 mg DAILY PO Last administered on 08/15/16 09:04; Admin Dose 12.5 MG; Start 08/11/16 at 09:00 Salmeterol Xinafoate/ Fluticasone (Advair 250/50 Diskus) 1 inh BID INH Last administered on 08/15/16 09:03; Admin Dose 1 INH; Start 08/10/16 at 13:00 Acetaminophen (Tylenol Tab) 650 mg Q6H PRN PO PAIN AND OR ELEVATED TEMP Last administered on 08/11/16 22:28; Admin Dose 650 MG; Start 08/11/16 at 22:30 Acetaminophen/ Hydrocodone Bitart ([place] (5/325)) 1 tab Q6H PRN PO PAIN LEVEL 1 -5; Start 08/11/16 at 22:30 Furosemide (Lasix) 40 mg DAILY PO Last administered on 08/14/16 08:44; Admin Dose 40 MG; Start 08/14/16 at 09:00; Status Future Hold Carvedilol (Coreg) 25 mg BID PO ; Start 08/15/16 at 21:00 DARION PRASAD Aug 15, 2016 17:25
[2016-08-15] MEDS: ATORVASTATIN 40 MG TAB PO SCH (20:16)
[2016-08-16] VITALS (9 sets, daily range): BP systolic 135–147; BP diastolic 59–63; PULSE 63–72; RESP 16–78
[2016-08-16] MEDS: ALBUTEROL/IPRATROPIUM (NEB) 3 ML AMP HHN SCH ×3 (01:35→14:22)
[2016-08-16] MEDS: PANTOPRAZOLE (EC) 40 MG TAB PO SCH (05:07)
[2016-08-16 07:35] LABS: POTASSIUM 3.9 mmol/L (3.5-5.1)
[2016-08-16 07:38] LABS: CREATININE 1.1 mg/dl (0.61-1.24)
[2016-08-16 07:39] LABS: CALCIUM 8.7 mg/dl (8.4-10.2)
[2016-08-16] MEDS: ASPIRIN 81 MG TAB PO SCH (09:55)
[2016-08-16] MEDS: HYDROCHLOROTHIAZIDE 12.5 MG CAP PO SCH (09:56)
[2016-08-16] MEDS: BENAZEPRIL 20 MG TAB PO SCH (09:57)
[2016-08-16] MEDS: SALMETEROL/FLUTICASONE 250/50 INHA INH SCH (09:57)
[2016-08-16] MEDS: ENOXAPARIN 30 MG/0.3 ML SYG SC SCH (10:08)
--- NOTE | 2016-08-16 15:32 | CONS ---
Date/Time of Note Date/Time of Note DATE: 08/16/16 TIME: 15:28 Assessment/Plan Assessment/Plan Chief Complaint/Hosp Course IMPRESSION: 1. Chest pain, assess for acute coronary syndrome.-negative troponin x3/EF 40% by echo this admit . Lexiscan 02/08 in my office with no ischemia/positive prior ND EF 45% 2. Shortness of breath, assess for congestive heart failure. 3. Abnormal electrocardiogram, assess for acute coronary syndrome. 4. Hypertension, under reasonable control. 5. History of dyslipidemia. 6. History of percutaneous transluminal coronary angioplasty and stent placement in 2011 to the right coronary artery. 7. History of stress test January 2016 in my partners office, unknown results at this time. 8. Chronic obstructive pulmonary disease. 9. Hypernatremia-improved 10. Mild anemia. 11.Renal insuff-likely due to overdiuresis-now improved 12. 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 Recc: -Tele -Continue coreg at increased doses to suppress further bouts of SVT -Continue benazepril/HCTZ -Resume daily PO lasix 20 mg at D/C -D/C planning with outpatient f/u 2 weeks with myself Problems: Consultation Date/Type/Reason Admit Date/Time Aug 10, 2016 at 01:56 Initial Consult Date 08/10/2016 Type of Consultation: Cardiology Reason for Consultation CHF Referring Provider: AMAN MOTA MD Exam/Review of Systems Vital Signs Vitals Vital Signs Date Time Temp Pulse Resp B/P Pulse Ox O2 Delivery O2 Flow Rate FiO2 08/16/16 15:19 97.8 68 16 135/61 97 08/16/16 14:23 21 08/16/16 04:00 Room Air 08/15/16 20:00 2.0 Intake and Output 08/15/16 08/15/16 08/16/16 15:00 23:00 07:00 Intake Total 240 ml 800 ml 600 ml Output Total 1000 ml 1300 ml Balance 240 ml -200 ml -700 ml Exam Review of Systems: CONSTITUTIONAL: No fevers, chills. PULMONARY: No sob CARDIOVASCULAR: No chest pain/palpitations GASTROINTESTINAL: No nausea/vomiting. GENITOURINARY: No hematuria/dysuria. MUSCULOSKELETAL: No myagias/arthalgias. PSYCHIATRIC: The patient denies depression. NEUROLOGIC: No weakness Constitutional: alert, oriented Psych: no complaints Head: normocephalic ENMT: mucosa pink and moist Neck: jvd (9 cm water), supple Respiratory: diminished breath sounds (at bases/B) Cardiovascular: regular rate and rhythm Gastrointestinal: non-tender, soft Musculoskeletal: muscle tone (normal) Extremities: edema (none) Neurological: other (No focal deficits) Results Result Diagram: 08/13/16 0639 08/16/16 0653 Results 24 hrs Laboratory Tests Test 08/16/16 06:53 Anion Gap 18 H Blood Urea Nitrogen 55 H Calcium Level 8.7 Carbon Dioxide Level 30 Chloride Level 96 L Creatinine 1.10 Glucose Level 109 Potassium Level 3.9 Sodium Level 140 Medications Medications Current Medications Ondansetron HCl (Zofran Inj) 4 mg Q6H PRN IV NAUSEA AND/OR VOMITING; Start at 10:30 Aspirin (Aspirin) 81 mg DAILY PO Last administered on 08/16/16 09:55; Admin Dose 81 MG; Start 08/11/16 at 09:00 Nitroglycerin (Nitroglycerin (Sl Tab) 0.4 Mg) 1 tab Q5M PRN SL CHEST PAIN; Start 08/10/16 at 10:30 Morphine Sulfate (morphine) 2 mg Q4H PRN IV PAIN LEVEL 7-10 Last administered on 08/12/16 22:26; Admin Dose 2 MG; Start 08/10/16 at 10:30 Pantoprazole (Protonix Tab) 40 mg DAILY@06 PO Last administered on 08/16/16 05 :07; Admin Dose 40 MG; Start 08/11/16 at 06:00 Enoxaparin Sodium (Lovenox) 30 mg DAILY SC Last administered on 08/16/16 10:08 ; Admin Dose 30 MG; Start 08/10/16 at 10:30 Atorvastatin Calcium (Lipitor) 40 mg QHS PO Last administered on 08/15/16 20: 16; Admin Dose 40 MG; Start 08/10/16 at 21:00 Benazepril HCl (Lotensin) 20 mg DAILY PO Last administered on 08/16/16 09:57; Admin Dose 20 MG; Start 08/11/16 at 09:00 Hydrochlorothiazide (Hydrochlorothiazide) 12.5 mg DAILY PO Last administered on 08/16/16 09:56; Admin Dose 12.5 MG; Start 08/11/16 at 09:00 Salmeterol Xinafoate/ Fluticasone (Advair 250/50 Diskus) 1 inh BID INH Last administered on 08/16/16 09:57; Admin Dose 1 INH; Start 08/10/16 at 13:00 Acetaminophen (Tylenol Tab) 650 mg Q6H PRN PO PAIN AND OR ELEVATED TEMP Last administered on 08/11/16 22:28; Admin Dose 650 MG; Start 08/11/16 at 22:30 Acetaminophen/ Hydrocodone Bitart ([place] (5/325)) 1 tab Q6H PRN PO PAIN LEVEL 1 -5; Start 08/11/16 at 22:30 Furosemide (Lasix) 40 mg DAILY PO Last administered on 08/14/16 08:44; Admin Dose 40 MG; Start 08/14/16 at 09:00; Status Future Hold Carvedilol (Coreg) 25 mg BID PO Last administered on 08/16/16 09:56; Admin Dose 25 MG; Start 08/15/16 at 21:00 MYRNA OWEN Aug 16, 2016 15:32
[2016-08-16] MEDS ORDERED: CARV25TA79 PO (16:37)
[2016-08-16] MEDS ORDERED: ASPI81TA3 PO (16:37)
[2016-08-16] MEDS ORDERED: BENA20TA48 PO (16:37)
[2016-08-16] MEDS ORDERED: PANT40TA4 PO (16:37)
[2016-08-16] MEDS ORDERED: HYDR12.53 PO (16:37)
[2016-08-16] MEDS ORDERED: FURO20TA3 PO (16:37)
== END 2016-08-16 19:10 | disposition home or self-care (01) | DRG 311 ==
LOC: E/R 18:46 → TEL 08-10 01:56
PROVIDERS: ADMIT Internal Medicine; ATTEND Internal Medicine
DX: I20.9 Angina pectoris, unspecified (principal); E87.0 Hyperosmolality and hypernatremia; J44.9 Chronic obstructive pulmonary disease, unspecified; I11.0 Hypertensive heart disease with heart failure; I50.40 Unspecified combined systolic (congestive) and diastolic (congestive) heart failure; I47.1 Supraventricular tachycardia; I25.2 Old myocardial infarction; Z95.5 Presence of coronary angioplasty implant and graft; E78.5 Hyperlipidemia, unspecified; D64.9 Anemia, unspecified; N28.9 Disorder of kidney and ureter, unspecified
CPT/HCPCS: 36415; 71010; 80048; 80053; 80061; 82550; 82553; 83735; 83880; 84443; 84484; 85025; 85610; 85730; 93005; 93306; 94640; 94664; J1650; J1940; J2270; J7040

== ENCOUNTER 2017-01-12 20:48 | Emergency (ER) | payer BC ==
[~2017-01-12] VITALS: Ht 167.6 cm; Wt 81.0 kg
[~2017-01-12 20:48] MED LIST changes: -ASPI325T4 PO; +ASPI81TA3 PO; -BENA1TAB13; +BENA20TA48 PO; +CARV25TA79 PO; -CARV6.2545 PO; +FURO20TA3 PO; +HYDR12.53 PO; -LAS20 PO; -NAPR-260 PO; -PANT40TA3; +PANT40TA4 PO; -POTA10TA
[2017-01-12 21:14] VITALS: Ht 167.6 cm; Wt 81.0 kg
--- NOTE | 2017-01-12 21:41 | ERD ---
ER Documentation Chief Complaint Date/Time DATE: 01/12/17 TIME: 21:38 Chief Complaint epistaxis x 2 hours HPI Patient is a 56-year-old male who presents with sudden onset, constant, atraumatic left nare nosebleed approximately 1-2 hours prior to arrival. He states that he blew his nose when the pain started. The patient has history of hypertension and takes baby aspirin. He is not on blood thinners. He denies trauma. ROS All systems reviewed and are negative except as per history of present illness. Medications Home Meds Active Scripts Aspirin (Aspirin) 81 Mg Chew, 81 MG PO DAILY for 30 Days, TAB Prov:DARION PRASAD 08/16/16 Pantoprazole* (Pantoprazole*) 40 Mg Tablet.dr, 40 MG PO DAILY@06, #30 Prov:DARION PRASAD 08/16/16 Furosemide* (Furosemide*) 20 Mg Tablet, 20 MG PO DAILY for 30 Days, #60 TAB Prov:DARION PRASAD 08/16/16 Hydrochlorothiazide (Hydrochlorothiazide) 12.5 Mg Capsule, 12.5 MG PO DAILY for 30 Days, CAP Prov:DARION PRASAD 08/16/16 Carvedilol* (Carvedilol*) 25 Mg Tablet, 25 MG PO BID for 30 Days, TAB Prov:DARION PRASAD 08/16/16 Benazepril Hcl* (Benazepril Hcl*) 20 Mg Tablet, 20 MG PO DAILY for 30 Days, TAB Prov:DARION PRASAD 08/16/16 Ondansetron Hcl* (Zofran* ODT) 4 mg -ODT Tab.disper, 4 MG PO Q6 Y for NAUSEA AND /OR VOMITING, #10 TAB Prov:MYRNA GRAY MD 01/23/15 Reported Medications Atorvastatin (Lipitor) 40 Mg Tablet, 40 MG PO PM 03/06/12 Allergies Allergies: Coded Allergies: olive extract (Verified Allergy, Intermediate, hives, 01/12/17) Uncoded Allergies: oak wood (Allergy, Intermediate, hives, 03/06/12) PMhx/Soc Past medical history: Coronary artery disease, CHF, hypertension Past surgical history: Cardiac stents Social history: Denies tobacco or illicit drugs. Drinks occasional alcohol. Anesthesia Reaction: No Hx Neurological Disorder: No Hx Respiratory Disorders: No Hx Cardiac Disorders: Yes (CHF, [place], HTN) Hx Psychiatric Problems: No Hx Miscellaneous Medical Probl: Yes (htn/[place]/stents) Hx Alcohol Use: Yes Hx Substance Use: No Hx Tobacco Use: Yes (Former smoker) FmHx Family History: No coronary disease, No diabetes Physical Exam Vitals Vital Signs Date Time Temp Pulse Resp B/P Pulse Ox O2 Delivery O2 Flow Rate FiO2 01/12/17 21:14 98.3 81 20 173/73 96 Physical Exam Const: Alert, no acute distress Head: Atraumatic Eyes: Normal Conjunctiva ENT: Normal External Ears and Mouth. No active bleeding in bilateral nares. No source of bleeding noted on examination of left nare. Neck: Full range of motion. No meningismus. Resp: Clear to auscultation bilaterally, no wheezes, no rales Cardio: Regular rate and rhythm, no murmurs, extrasystoles Abd: Soft, non tender, non distended. Skin: No petechiae or rashes Back: No midline or flank tenderness Ext: No cyanosis, or edema Neur: Awake and alert Psych: Normal Mood and Affect Procedures/MDM MDM: Patient is a 56-year-old male with epistaxis. He is not on blood thinners. There is no nasal trauma. He does have hypertension that is currently poorly controlled. His epistaxis resolved with 10-15 minutes of gentle pressure. He will be discharged home with instruction to avoid blowing his nose, to apply moisturizing saline or petroleum jelly to the affected nare, and to take his blood pressure medications as prescribed. I have advised him to apply gentle pressure for 15 minutes if bleeding recurs and return to the ER if he is not able to stop bleeding. Departure Diagnosis: Primary Impression: Epistaxis Condition: Stable Patient Instructions: Epistaxis (Adult) Referrals: ALBER AGOSTO MD (PCP) Additional Instructions: Apply pressure for 15 minutes if bleeding recurs. Return to the ER if you unable to stop bleeding. Follow-up with your PMD in the next 2-3 days if you have further concerns. Do not blow your nose. PHILLY HU MD Jan 12, 2017 21:40
[2017-01-12 21:50] VITALS: BP 141/58; PULSE 69; RESP 20
== END 2017-01-12 22:10 | disposition home or self-care (01) ==
LOC: E/R 20:48
DX: R04.0 Epistaxis (principal); I10 Essential (primary) hypertension; I50.9 Heart failure, unspecified; I25.10 Atherosclerotic heart disease of native coronary artery without angina pectoris; R40.2142 Coma scale, eyes open, spontaneous, at arrival to emergency department; R40.2252 Coma scale, best verbal response, oriented, at arrival to emergency department; R40.2362 Coma scale, best motor response, obeys commands, at arrival to emergency department; Z98.61 Coronary angioplasty status; Z87.891 Personal history of nicotine dependence; Z79.82 Long term (current) use of aspirin
CPT/HCPCS: 99282

== ENCOUNTER 2017-03-05 01:25 | Emergency (ER) | payer BC ==
[~2017-03-05] VITALS: Ht 162.6 cm; Wt 81.5 kg
[2017-03-05 01:30] VITALS: Ht 162.6 cm; Wt 81.5 kg
--- NOTE | 2017-03-05 02:18 | ERD ---
ER Documentation Chief Complaint Date/Time DATE: 03/05/17 TIME: 02:15 Chief Complaint right ear pain x3days HPI c/o clogged ear with change in hearing, pt treated self with debrox x 4 days with worsening of symptoms. pt reports now he has pain in ihs right ea and Jaw. denies dizziness, n/v ROS All systems reviewed and are negative except as per history of present illness. Medications Home Meds Active Scripts Ibuprofen* (Motrin*) 600 Mg Tab, 600 MG PO Q6, #30 TAB Prov:KENDRA,PRITESH 03/05/17 Amoxicillin/Potassium Clav (Amox-Clav 875-125 mg Tablet) 875-125 mg Tab, 1 TAB PO BID for 10 Days, #20 TAB Prov:KENDRA,PRITESH 03/05/17 Aspirin (Aspirin) 81 Mg Chew, 81 MG PO DAILY for 30 Days, TAB Prov:DARION PRASAD 08/16/16 Pantoprazole* (Pantoprazole*) 40 Mg Tablet.dr, 40 MG PO DAILY@06, #30 Prov:DARION PRASAD 08/16/16 Furosemide* (Furosemide*) 20 Mg Tablet, 20 MG PO DAILY for 30 Days, #60 TAB Prov:DARION PRASAD 08/16/16 Hydrochlorothiazide (Hydrochlorothiazide) 12.5 Mg Capsule, 12.5 MG PO DAILY for 30 Days, CAP Prov:DARION PRASAD 08/16/16 Carvedilol* (Carvedilol*) 25 Mg Tablet, 25 MG PO BID for 30 Days, TAB Prov:DARION PRASAD 08/16/16 Benazepril Hcl* (Benazepril Hcl*) 20 Mg Tablet, 20 MG PO DAILY for 30 Days, TAB Prov:DARION PRASAD 08/16/16 Ondansetron Hcl* (Zofran* ODT) 4 mg -ODT Tab.disper, 4 MG PO Q6 Y for NAUSEA AND /OR VOMITING, #10 TAB Prov:MYRNA GRAY MD 01/23/15 Reported Medications Atorvastatin (Lipitor) 40 Mg Tablet, 40 MG PO PM 03/06/12 Allergies Allergies: Coded Allergies: olive extract (Verified Allergy, Intermediate, hives, 01/12/17) Uncoded Allergies: oak wood (Allergy, Intermediate, hives, 03/06/12) PMhx/Soc Anesthesia Reaction: No Hx Neurological Disorder: No Hx Respiratory Disorders: No Hx Cardiac Disorders: Yes (CHF, [place], HTN) Hx Psychiatric Problems: No Hx Miscellaneous Medical Probl: Yes (htn/[place]/stents) Hx Alcohol Use: Yes Hx Substance Use: No Hx Tobacco Use: Yes (Former smoker) Physical Exam Vitals Vital Signs Date Time Temp Pulse Resp B/P Pulse Ox O2 Delivery O2 Flow Rate FiO2 03/05/17 01:30 98.0 86 12 166/72 96 VSS treatment notes reviewed Physical Exam Const: Nourished well-appearing well-hydrated male patient obvious discomfort no acute Head: Eyes: Normal Conjunctiva, PERRLA, EOMI ENT: Right tympanic membrane distorted, not visualized well, purulent mattering from the eardrum. Auditory canal without narrowing, no blood in canal. Left tympanic membrane translucent, auditory canals clear, nasal mucosa moist, turbinates nonedematous with no mucus or crust, pharynx is pink, tongue midline, uvula midline without shift. Mucous membranes are moist. Neck: Full range of motion..~ No meningismus. Resp: Cardio: Abd: Skin: Back: Ext: Neur: Awake and alert Psych: Normal Mood and Affect Results 24 hrs Current Medications Medications (Trade) Dose Ordered Sig/Francisco Route PRN Reason Start Time Stop Time Status Last Admin Dose Admin Ceftriaxone Sodium (Rocephin) 1 gm ONCE ONCE IM 03/05/17 02:30 03/05/17 02:31 DC Ibuprofen (Motrin) 600 mg ONCE ONCE PO 03/05/17 02:30 03/05/17 02:31 DC Procedures/MDM This 56-year-old male patient presents to emergency department with progressive worsening of clogged hearing out of right ear. Patient reports that he googled causative factors of decreased hearing and believed he had a cerumen impaction which she has been treated with Debrox. Patient moved to putting hydrogen peroxide in air today pain has worsened. Patient reports difficulty hearing, denies nausea vomiting or dizziness, denies chest pain shortness of breath or palpitations. Physical exam findings and history are consistent with an otitis media. Today's emergency room course includes 1 g of Rocephin given intramuscularly and 600 mg of ibuprofen for pain. Patient will be discharged home Augmentin 875 1 tab p.o. twice daily 10 days. Ibuprofen 600 mg as needed every 6 hours pain. Patient is stable with no new complaints during ER course, clinically there is no current evidence to suggest Foreign body in ear, malignancy , mastoiditis or any other emergent condition appearing to require further evaluation or hospitalization. I feel the patient is stable for discharge at this time. I have discussed results, examination findings, the treatment plan with the patient and family present prior to discharge. Indications for emergent reevaluation, side effects of medication were also discussed. All questions were answered. Patient verbalizes understanding and agrees with plan of care. Departure Diagnosis: Primary Impression: Otitis media Otitis media type: suppurative Chronicity: acute Laterality: right Recurrence: not specified as recurrent Spontaneous tympanic membrane rupture: without spontaneous rupture Qualified Code: H66.001 - Acute suppurative otitis media of right ear without spontaneous rupture of tympanic membrane, recurrence not specified Condition: Good Patient Instructions: Otitis Media, Abx Tx (Adult) [facility]errals[facility] Additional Instructions: Thank you for for coming to [facility] for your care today. Please ask your nurse or provider if you have questions about your care today and do not leave until all your questions have been answered. Please use any medications given as directed and follow-up with your doctor (or the doctor you were referred to) in the next 2-3 days. If you do not have a primary care doctor you may follow up at the [facility] (listed below). You may also use motrin and tylenol as needed for fever and/or pain unless instructed otherwise by your provider or nurse. Indications for more urgent follow-up have been discussed, but you may return to the Emergency Department at ANY time for any worrisome or worsening symptoms. If you have abdominal pain, please know that no test or exam you received is perfect and you should follow up within 8 hours for continued pain. If you had any imaging studies today, such as an X-Ray or CT Scan, these studies will be reviewed later by a radiologist. You will be called if there are important findings that were not identified today, so make sure the contact information you provided at registration is correct. If you received any narcotic pain control medicine today, such as Vicodin, Morphine or Dilaudid, your coordination and judgment may be affected for a number of hours. Please do not drive or operate heavy machinery, and you may want someone to assist you at home. If you were given a prescription for narcotic medication, be aware that it is very addictive- use sparingly and only if necessary. PRITESH GARDNER Mar 05, 2017 02:18
[2017-03-05] MEDS ORDERED: CEFTRIAXONE 1 GM INJ IM ONE (02:30)
[2017-03-05] MEDS ORDERED: IBUPROFEN 600 MG TAB PO ONE (02:30)
[2017-03-05] MEDS ORDERED: IBUP-1542 PO (03:13)
[2017-03-05] MEDS ORDERED: AMOX1TAB10 PO (03:13)
[2017-03-05 03:37] VITALS: BP 150/66; PULSE 81; RESP 20
== END 2017-03-05 03:39 | disposition home or self-care (01) ==
LOC: FTE 01:25
DX: H66.001 Acute suppurative otitis media without spontaneous rupture of ear drum, right ear (principal); I10 Essential (primary) hypertension; I50.9 Heart failure, unspecified; Z79.82 Long term (current) use of aspirin; Z87.891 Personal history of nicotine dependence
CPT/HCPCS: 96372; 99284; J0696